=== PATIENT | female | born 1990 | race Caucasian/White ===

== ENCOUNTER → 2017-05-06 | Emergency (ER) | payer OTHER ==
[2017-05-06 01:02] VITALS: BP 128/71; PULSE 94; TEMP 98.5; BMI 35.7
[2017-05-06 03:50] LABS: URINE APPEARANCE CLEAR; URINE BILIRUBIN NEGATIVE (NEGATIVE); URINE BLOOD 3+ (NEGATIVE); URINE COLOR LT. YELLOW; URINE GLUCOSE (UA) NEGATIVE (NEGATIVE); URINE KETONE TRACE (NEGATIVE); URINE NITRITE NEGATIVE (NEGATIVE); URINE PROTEIN TRACE (NEGATIVE)
--- NOTE | 2017-05-06 03:50 | PDOC ---
History of Present Illness - General History Source: Patient Exam Limitations: No Limitations - History of Present Illness Initial Comments: 05/06/17 03:51 The patient is a 26 year old female who is approx. 8 weeks (no past pregnancies) with no significant past medical history who presents to the ER s/ p hematuria approx. 3 hours ago. The patient reports she noticed a small amount of blood in her urine tonight and wanted to be evaluated. She reports her OB/ MACHINE FIXER is Dr. Peterson and her last visit was March. She denies recent dysuria, frequency, or urgency. She denies recent chest pain or shortness of breath. She denies recent recent nausea, vomit, diarrhea or constipation. 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 Peterson <Fredrick Dominguez - Last Filed: 05/06/17 03:51> <Laquita Rehman - Last Filed: 05/07/17 00:12> - General Chief Complaint: Vaginal Bleeding Stated Complaint: VAGINAL BLEEDING Time Seen by Provider: 05/06/17 02:28 Past History <Fredrick Dominguez - Last Filed: 05/06/17 03:51> - Past Medical History Other medical history: denies - Suicide/Smoking/Psychosocial Hx Smoking History: Never smoked <Laquita Rehman - Last Filed: 05/07/17 00:12> - Past Medical History Allergies/Adverse Reactions: Allergies Allergy/AdvReac Type Severity Reaction Status Date / Time No Known Allergies Allergy Verified 05/06/17 00:52 Review of Systems - Review of Systems Comments:: 05/06/17 03:51 GENERAL/CONSTITUTIONAL: No fever or chills. No weakness. HEAD, EYES, EARS, NOSE AND THROAT: No change in vision. No ear pain or discharge. No sore throat. CARDIOVASCULAR: No chest pain or shortness of breath. RESPIRATORY: No cough, wheezing, or hemoptysis. GASTROINTESTINAL: No nausea, vomiting, diarrhea or constipation. GENITOURINARY: No dysuria, frequency, or change in urination. MUSCULOSKELETAL: No joint or muscle swelling or pain. No neck or back pain. SKIN: No rash NEUROLOGIC: No headache, vertigo, loss of consciousness, or change in strength/ sensation. ENDOCRINE: No increased thirst. No abnormal weight change. HEMATOLOGIC/LYMPHATIC: No anemia, easy bleeding, or history of blood clots. ALLERGIC/IMMUNOLOGIC: No hives or skin allergy. <AlbertoFredrick - Last Filed: 05/06/17 03:51> *Physical Exam - Vital Signs Last Vital Signs Temp Pulse Resp BP Pulse Ox 98.5 F 94 H 18 128/71 100 05/06/17 00:49 05/06/17 00:49 05/06/17 00:49 05/06/17 00:49 05/06/17 00:49 - Physical Exam Comments: 05/06/17 03:51 ENERAL: Awake, alert, and fully oriented, in no acute distress HEAD: No signs of trauma EYES: PERRLA, EOMI, sclera anicteric, conjunctiva clear ENT: Auricles normal inspection, hearing grossly normal, nares patent, oropharynx clear without exudates. Moist mucosa NECK: Normal ROM, supple, no lymphadenopathy, JVD, or masses LUNGS: Breath sounds equal, clear to auscultation bilaterally. No wheezes, and no crackles HEART: Regular rate and rhythm, normal S1 and S2, no murmurs, rubs or gallops ABDOMEN: Soft, nontender, normoactive bowel sounds. No guarding, no rebound. No masses EXTREMITIES: Normal range of motion, no edema. No clubbing or cyanosis. No cords, erythema, or tenderness NEUROLOGICAL: Cranial nerves II through XII grossly intact. Normal speech, normal gait SKIN: Warm, Dry, normal turgor, no rashes or lesions noted. <DominguezAlexanderFredrick - Last Filed: 05/06/17 03:51> - Vital Signs Last Vital Signs Temp Pulse Resp BP Pulse Ox 98.5 F 94 H 18 128/71 100 05/06/17 00:49 05/06/17 00:49 05/06/17 00:49 05/06/17 00:49 05/06/17 00:49 <Laquita Rehman - Last Filed: 05/07/17 00:12> Medical Decision Making - Medical Decision Making 05/06/17 03:55 Pt comes with vaginal bleeding when she wipes after urination. She is 8 weeks and states that she norman d a sono 2 weeks ago that demonstrated an IUP with FHT. Pt is Opositive, SHe understands that she doesn;t require US at this time, as we know baby is IUP , and she can follow up with PMD. Pt will have UA sent to make sure that she has no UTI. SHe is unwilling to wait for UTI results and she also will not let us verify her O+ status that she reports, as we need to give Rhogam in case she is RH negative. Pt will follow with her PMD Nicholas. <Laquita Rehman - Last Filed: 05/07/17 00:12> *DC/Admit/Observation/Transfer - Attestations Scribe Attestion: 05/06/17 03:51 Documentation prepared by Fredrick Dominguez, acting as medical assembler for Laquita Rehman MD. <Fredrick Dominguez - Last Filed: 05/06/17 03:51> - Discharge Dispostion Admit: No <Laquita Rehman - Last Filed: 05/07/17 00:12> Diagnosis at time of Disposition: Vaginal bleeding, Threatened - Discharge Dispostion Disposition: ELOPED Condition at time of disposition: Stable
[2017-05-06 03:52] LABS: URINE LEUK ESTERASE TRACE (NEGATIVE)
[2017-05-06 04:00] LABS: URINE MUCUS RARE; URINE RBC 11 /hpf (0-3); URINE WBC 11 /hpf (3-5)
== END | disposition left against medical advice (07) ==
LOC: JER 00:46
DX: O20.0 Threatened abortion (principal); Z3A.08 8 weeks gestation of pregnancy
CPT/HCPCS: 81003; 81015; 99281-25

== ENCOUNTER 2017-08-28 17:39 | Inpatient (IN) | payer OTHER ==
[2017-08-28] MEDS ORDERED: LACTATED RINGERS SOLUTION 1,000 ML/1,000 ML INFUS.BAG IV ONE (18:25)
[2017-08-28] MEDS ORDERED: BETAMET ACET/BETAMET NA PH 30 MG/5 ML VIAL ONE (18:29)
[2017-08-28] MEDS ORDERED: BETAMET ACET/BETAMET NA PH 30 MG/5 ML VIAL IM ONE ×2 (18:30)
[2017-08-28 18:51] VITALS: BMI 37.7
[2017-08-28] MEDS ORDERED: MAGNESIUM 4GM/H20 - 4 GM/100 ML IVPB IVPB ONE ×2 (19:05→19:10)
[2017-08-28] MEDS ORDERED: AMPICILLIN SODIUM 2 GM VIAL ONE (19:28)
[2017-08-28] MEDS ORDERED: AMPICILLIN - 2 GM in SODIUM CHLORIDE 100 ML IVPB ONE (19:30)
[2017-08-28] MEDS ORDERED: ELECTROLYTE-148 SOLN 1,000 ML IV ONE (19:31)
[2017-08-28 19:35] LABS: BASO % 0.5 % (0-2.0); EOS % 0.6 % (0-4.5); HEMATOCRIT 33.9 % (32.4-45.2); HEMOGLOBIN 11.3 GM/dL (10.7-15.3); MCH 29.5 pg (25.7-33.7); MCHC 33.2 g/dl (32.0-36.0); MEAN CELL VOLUME 88.9 fl (80-96); MEAN PLT VOLUME 8.3 fl (7.5-11.1); NEUT % 75.9 % (42.8-82.8); PLATELET COUNT 240 K/MM3 (134-434); RBC 3.82 M/mm3 (3.60-5.2); RDW 14.1 % (11.6-15.6); WHITE BLOOD COUNT 13.6 K/mm3 (4.0-10.0)
[2017-08-28] MEDS ORDERED: MAGNESIUM SULFATE 20GM/500ML - 20 GM/500 ML INFUS.BAG ONE (19:35)
[2017-08-28] MEDS ORDERED: MAGNESIUM SULFATE 20GM/500ML - 20 GM/500 ML INFUS.BAG IVPB ONE (19:40)
[2017-08-28 19:52] LABS: INR 0.95 (0.82-1.09); PROTHROMBIN TIME (PATIENT) 10.7 SEC (9.98-11.88)
[2017-08-28 19:53] LABS: ANION GAP 11 (8-16); BLOOD UREA NITROGEN 8 mg/dL (7-18); CALCIUM 8.2 mg/dL (8.5-10.1); CHLORIDE 103 mmol/L (98-107); CO2 23 mmol/L (21-32); CREATININE 0.4 mg/dL (0.55-1.02); GLUCOSE,RANDOM 92 mg/dL (74-106); POTASSIUM 3.8 mmol/L (3.5-5.1); SODIUM 137 mmol/L (136-145)
[2017-08-28 19:55] LABS: ACTIVATED PTT 27.7 SECONDS (26.9-34.4)
[2017-08-28] MEDS ORDERED: BUTORPHANOL TARTRATE 1 MG/ML VIAL ONE ×2 (20:08)
[2017-08-28] MEDS ORDERED: PROMETHAZINE HCL 25 MG/1 ML VIAL ONE (20:09)
--- NOTE | 2017-08-28 20:09 | HP ---
Past Medical History - Primary Care Physician PCP:: Mumtaz Peterson - Admission Chief Complaint: 27 yo @ 24.5wks. She called the servise shaka at 5pm informing of some spotting and instructed to go to labor and delivery immidiately. She did not report contructions, LOF, + FM History of Present Illness: Nurse reported @ 6pm that patient is 6cm dilated I asked to give her Bethamethasone and start MgSo4 I came and saw patient at 7pm I found that patient was uncomfortable and preeti on the monitor I reexamined her VE:8/100% and buldging membranes at 7pm that is when Mgso4 was started History Source: Patient, Medical Record Limitations to Obtaining History: No Limitations - Past Medical History ...: 1 ...Para: 0 ...Term: 0 ...: 0 ...Spon : 0 ...Induced : 0 ...Multiple Gestation: 0 ...LMP: 03/08/17 ... 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 Home Medications - Allergies Allergies/Adverse Reactions: Allergies Allergy/AdvReac Type Severity Reaction Status Date / Time No Known Allergies Allergy Verified 05/06/17 00:52 - Home Medications Home Medications: Ambulatory Orders Vitamins 1 tab PO DAILY 08/28/17 Review of Systems - Review of Systems Constitutional: reports: No Symptoms Neck: reports: No Symptoms Cardiovascular: reports: No Symptoms Respiratory: reports: No Symptoms Gastrointestinal: reports: No Symptoms Breasts: reports: No Symptoms Reported Musculoskeletal: reports: No Symptoms Integumentary: reports: No Symptoms Neurological: reports: No Symptoms Endocrine: reports: No Symptoms Hematology/Lymphatic: reports: No Symptoms Psychiatric: reports: No Symptoms Pain Intensity: 7 (feels contructions and pressure) Physical Exam - Maternity Vital Signs: Vital Signs Temperature 97.3 F L 08/28/17 18:15 Pulse Rate 73 08/28/17 18:15 Respiratory Rate 20 08/28/17 18:15 Blood Pressure 121/64 08/28/17 18:15 O2 Sat by Pulse Oximetry (%) Constitutional: Yes: Well Nourished, Other (Obese) Eyes: Yes: WNL HENT: Yes: WNL Neck: Yes: WNL Cardiovascular: Yes: WNL Lungs: Clear to auscultation Breast(s): Yes: WNL - Abdominal Exam/OB Fundal Height: 24 Number of Fetuses: Single Presentation: Vertex Contractions: Yes Regularity: Regular Intensity: Mild/Mod Monitor Mode: External Heart Rate (range): 140's Heart Rate Location: Midline Category: I Accelerations: Uniform Decelerations: None - Vaginal Exam/OB Vaginal Bleediing: Yes, Light Speculum Exam: No Dilatation (cm): 8 Effacement (%): 100 Amniotic Membrane Status: Bulging Presentation: Vertex/Position Station: 0 - Physical Exam Musculoskeletal: Yes: WNL Extremities: Yes: WNL Edema: No Integumentary: Yes: WNL Deep Tendon Reflex Grade: Normal +2 ...Motor Strength: WNL Psychiatric: Yes: Alert, Oriented - Labs Lab Results: CBC, BMP 08/28/17 19:15 08/28/17 19:15 Assessment/Plan 27yo @ 24.5wks in labor Bethamethasone given for lung maturity and to decrease bowel and brain complications of prematurity MgSO4 started to increase latency and neuroprophylaxis Ampicillin given for infection prophylaxis Patient is placed in [place] position, martinez to gravity given Stadol/Phenergan, she is resting Asked a suggestion about additional tocolysis, he is not recommending it Transfer to [facility] initiated Patient is accepted at 21:45 Awaiting the transport team
[2017-08-28] MEDS ORDERED: BUTORPHANOL TARTRATE 1 MG/ML VIAL IVPUSH ONE ×2 (20:38)
[2017-08-28] MEDS ORDERED: PROMETHAZINE HCL 25 MG/1 ML VIAL IVPUSH ONE (20:38)
[2017-08-28 21:58] VITALS: BP 115/65; PULSE 92; TEMP 98.1
[2017-08-28 23:14] LABS: COCAINE, UR NEGATIVE ng/ml (CUTOFF=300); METHADONE, UR NEGATIVE ng/ml (CUTOFF=300); OPIATES, URI NEGATIVE ng/ml (CUTOFF=300); PHENCYCLIDINE,URINE NEGATIVE ng/ml (CUTOFF=25); URINE AMPHETAMINES NEGATIVE ng/ml (CUTOFF=500); URINE BARBITURATES NEGATIVE ng/ml (CUTOFF=200); URINE BENZODIAZEPINES NEGATIVE ng/ml (CUTOFF=200)
[2017-08-29 07:19] LABS: RPR NONREACTIVE (NONREACTIVE)
== END 2017-08-28 22:30 | disposition short-term general hospital (02) | DRG 563 ==
LOC: JDEL 17:39 → JLDR 18:15
PROVIDERS: ADMIT Obstetrics & Gynecology; ATTEND Obstetrics & Gynecology
DX: O60.02 Preterm labor without delivery, second trimester (principal); Z3A.24 24 weeks gestation of pregnancy
CPT/HCPCS: 36415; 80048; 80307; 85025; 85610; 85730; 86593; 86850; 86900; 86901; 87070; 87081; 87086; 87205; 87389; 87491; 87591; 96372

== ENCOUNTER 2018-02-15 01:15 | Inpatient (IN) | payer OTHER ==
[2018-02-15 01:58] VITALS: BMI 37.5
--- NOTE | 2018-02-15 02:02 | PDOC ---
History of Present Illness - General Chief Complaint: Pain, Acute Stated Complaint: BACK PAIN/ABDOMINAL PAIN Time Seen by Provider: 02/15/18 02:00 - History of Present Illness Initial Comments: 02/15/18 02:16 The patient is a 27 year old female with no significant PMH who presents for evaluation of abdominal pain, nausea, vomiting. The patient reports onset of burning epigastric abdominal pain 1 day ago with associated nausea and several episodes of non-bilious, non-bloody vomiting. She noted some radiation of the pain into her back prompting her presentation to the ED for further evaluation. She otherwise denies fevers, chills, SOB, chest pain, or changes with urination or bowel movements. Past History - Past Medical History Allergies/Adverse Reactions: Allergies Allergy/AdvReac Type Severity Reaction Status Date / Time No Known Allergies Allergy Verified 02/15/18 01:58 Home Medications: Ambulatory Orders NK [No Known Home Medication] 02/15/18 Asthma: No Cancer: No Cardiac Disorders: No Diabetes: No HTN: No Seizures: No Thyroid Disease: No - Suicide/Smoking/Psychosocial Hx Smoking History: Never smoked Have you smoked in the past 12 months: No Information on smoking cessation initiated: No Hx Alcohol Use: No Drug/Substance Use Hx: No Hx Substance Use Treatment: No Review of Systems - Review of Systems Comments:: 02/15/18 02:23 Constitutional: No fevers, chills, fatigue, malaise HEENT: No Rhinorrhea, nasal congestion, visual changes Cardiovascular: No chest pain, syncope, palpitations, lightheadedness Respiratory: No Cough, SOB, Hemoptysis, Gastrointestinal: Abdominal pain, nausea, vomiting. No Constipation, Diarrhea, Melena Genitourinary: No Dysuria, Frequency, Urgency, Hesitancy, Hematuria, Flank pain Musculoskeletal: No Myalgia, arthralgia Skin: No rashes, itching, bruising, pallor Neurologic: No Headache, Dizziness, Numbness, Weakness, or Tingling Psychiatric: No Hallucinations. No SI or HI *Physical Exam - Vital Signs Last Vital Signs Temp Pulse Resp BP Pulse Ox 98.2 F 97 H 16 124/75 99 02/15/18 01:55 02/15/18 01:55 02/15/18 01:55 02/15/18 01:55 02/15/18 01:55 - Physical Exam Comments: 02/15/18 02:23 General Appearance: Nourished. No Apparent Distress HEENT: No Pharyngeal Erythema, Tonsillar Exudate, Tonsillar Erythema Neck: No Cervical Lymphadenopathy Respiratory/Chest: Lungs Clear, Normal Breath Sounds. No Crackles, Rales, Rhonchi, Wheezing Cardiovascular: Regular Rhythm, Regular Rate. No Murmur, Gallops, Rubs Gastrointestinal/Abdominal: Normal Bowel Sounds, Soft. No Guarding, Rebound, Tenderness Musculoskeletal: No CVA Tenderness Extremity: Normal Capillary Refill Integumentary: Normal Color, Dry, Warm Neurologic: Fully Oriented, Alert, Normal Mood/Affect, Normal Response, ED Treatment Course - LABORATORY CBC & Chemistry Diagram: 02/15/18 07:38 02/15/18 15:30 Medical Decision Making - Medical Decision Making 02/15/18 02:23 The patient is a 27 year old female with no significant PMH who presents for evaluation of abdominal pain, nausea, vomiting. Differential includes but is not limited to: Gastritis, Infectious, UTI, Metabolic derangement. Given the patient's history and physical exam, we will obtain a cbc, cmp, lipase, ua, urine preg to evaluate further for possible etiologies. We will treat with iv fluids, pepcid, zofran, maalox and continue to monitor and reassess while here in the ED. 02/15/18 04:18 CBC is unremarkable. cmp demonstrates significant elevations in the patient's t.bili and liver enzymes concerning for possible gallbladder pathology. The patient states that she is comfortable on exam, but will require official US evaluate. We will continue to monitor and reassess while the patient is in the ED. She is to have US in the am. 02/15/18 07:00 Patient signed out to Dr. Feliz pending US evaluation. *DC/Admit/Observation/Transfer Diagnosis at time of Disposition: Cholecystitis, Biliary obstruction, Elevated transaminase level, Hyperbilirubinemia - Discharge Dispostion Condition at time of disposition: Guarded - Referrals - Patient Instructions - Post Discharge Activity
[2018-02-15] MEDS ORDERED: ONDANSETRON 4 MG/2 ML VIAL IVPUSH ONE (02:10)
[2018-02-15] MEDS ORDERED: FAMOTIDINE 20 MG/50 ML IVPB 20 MG/50 ML MG IVPB ONE ×2 (02:10→02:49)
[2018-02-15] MEDS ORDERED: SODIUM CHLORIDE 1,000 ML IV STA (02:10)
--- NOTE | 2018-02-15 02:13 | PDOC ---
Attending Attestation - HPI HPI: 02/15/18 02:23 The patient is a 27 year old female, with no significant past medical history, who presents to the emergency department with, 1 day of epigastric burning and associated pain. She explains the pain to radiate to her back and be accompanied by nausea and multiple episodes of nonbloody, nonbilious emesis. She denies recent fevers, chills, headache or dizziness. She denies recent diarrhea or constipation. She denies recent dysuria, frequency, urgency or hematuria. She denies recent chest pain or shortness of breath. Allergies: NKA Past surgical history: None reported. Social history: Nonsmoker. Denies EtOH use and recreational drug use. <Luis Ramsey - Last Filed: 02/15/18 02:23> - Resident Resident Name: Teofilo Wetzel - ED Attending Attestation I have performed the following: I have examined & evaluated the patient, The case was reviewed & discussed with the resident, I agree w/resident's findings & plan, Exceptions are as noted - Physicial Exam PE: 02/15/18 04:02 *Physical Exam General Appearance: Yes: Appropriately Dressed. No: Apparent Distress, Intoxicated HEENT: positive: EOMI, ELI, Normal ENT Inspection, Normal Voice, TMs Normal, Pharynx Normal. negative: Pale Conjunctivae, Photophobia, Scleral Icterus (R), Scleral Icterus (L) Neck: positive: Trachea midline, Normal Thyroid, Supple. negative: Tender, Rigid, Carotid bruit, Stridor, Lymphadenopathy (R), Lymphadenopathy (L), Thyromegaly Respiratory/Chest: positive: Lungs Clear, Normal Breath Sounds. negative: Chest Tender, Respiratory Distress, Accessory Muscle Use, Labored Respiration, RES, Crackles, Rales, Rhonchi, Stridor, Wheezing, Dullness Cardiovascular: positive: Regular Rhythm, Regular Rate, S1, S2. negative: Edema , JVD, Murmur, Bradycardia, Tachycardia Vascular Pulses: Dorsalis-Pedis (R): 2+, Doralis-Pedis (L): 2+ Gastrointestinal/Abdominal: positive: Normal Bowel Sounds, Flat, Soft. negative : Tender, Organomegaly, Pulsatile Mass, Increased Bowel Sounds, Decreased BS, Distended, Guarding, Rebound, Hernia, Hepatomegaly, Spleenomegaly Lymphatic: negative: Adenopathy, Tenderness Musculoskeletal: positive: Normal Inspection. negative: CVA Tenderness, Decreased Range of Motion Extremity: positive: Normal Capillary Refill, Normal Inspection, Normal Range of Motion, Pelvis Stable. negative: Tender, Pedal Edema, Swelling, Erythema Integumentary: positive: Normal Color, Dry, Warm. negative: Cyanotic, Erythema , Jaundice, Rash Neurologic: positive: chinese medicine practitioner II-XII NML intact, Fully Oriented, Alert, Normal Mood/ Affect, Motor Strength 5/5. negative: EOM Palsy, Facial Droop, Sensory Deficit - Medical Decision Making 02/15/18 19:28 Pt admitted to [facility] <Eris Franz - Last Filed: 02/15/18 19:28> Attestations - Attestations 02/15/18 02:23 Documentation prepared by Luis Ramsey, acting as medical investigator for Eris Franz DO. <Luis Ramsey - Last Filed: 02/15/18 02:23>
[2018-02-15] MEDS ORDERED: MAG HYDROX/AL HYDROX/SIMETH 30 ML UNIT-DOSE CUP PO ONE (02:14)
[2018-02-15] MEDS ORDERED: MAG HYDROX/AL HYDROX/SIMETH 30 ML UNIT-DOSE CUP ONE (02:48)
[2018-02-15] MEDS ORDERED: ONDANSETRON 4 MG/2 ML VIAL ONE (02:49)
[2018-02-15 03:23] LABS: BASO % 0.4 % (0-2.0); EOS % 0.9 % (0-4.5); HEMOGLOBIN 13.8 GM/dL (10.7-15.3); LYMPH % 14.7 % (8-40); MCH 27.9 pg (25.7-33.7); MCHC 33.6 g/dl (32.0-36.0); MEAN CELL VOLUME 83.1 fl (80-96); MEAN PLT VOLUME 9.4 fl (7.5-11.1); PLATELET COUNT 263 K/MM3 (134-434); RBC 4.93 M/mm3 (3.60-5.2); WHITE BLOOD COUNT 7.9 K/mm3 (4.0-10.0)
[2018-02-15 03:24] LABS: HCG,QUALITATIVE URINE NEGATIVE; URINE APPEARANCE CLEAR; URINE BILIRUBIN NEGATIVE (<2.0 mg/dL); URINE COLOR YELLOW; URINE GLUCOSE (UA) NEGATIVE (NEGATIVE); URINE KETONE NEGATIVE (NEGATIVE); URINE LEUK ESTERASE NEGATIVE (NEGATIVE); URINE NITRITE NEGATIVE (NEGATIVE); URINE PROTEIN NEGATIVE (NEGATIVE)
[2018-02-15 03:40] LABS: EPI CELLS RARE /HPF (FEW)
[2018-02-15 03:53] LABS: ALBUMIN 3.4 g/dl (3.4-5.0); ALK PHOS 175 U/L (45-117); ANION GAP 8 (8-16); BILIRUBIN,TOTAL 4.3 mg/dL (0.2-1.0); BLOOD UREA NITROGEN 7 mg/dL (7-18); CALCIUM 8.9 mg/dL (8.5-10.1); CHLORIDE 105 mmol/L (98-107); CO2 28 mmol/L (21-32); CREATININE 0.7 mg/dL (0.55-1.02); GLUCOSE,RANDOM 132 mg/dL (74-106); LIPASE 95 U/L (73-393); POTASSIUM 4.4 mmol/L (3.5-5.1); SODIUM 141 mmol/L (136-145); TOT PROT 7.4 g/dl (6.4-8.2)
[2018-02-15 03:55] LABS: SGOT/AST 888 U/L (15-37); SGPT/ALT 997 U/L (12-78)
--- NOTE | 2018-02-15 07:07 | PDOC ---
*Physical Exam - Vital Signs Last Vital Signs Temp Pulse Resp BP Pulse Ox 98.6 F 88 18 138/70 99 02/15/18 04:35 02/15/18 04:35 02/15/18 04:35 02/15/18 04:35 02/15/18 04:35 02/15/18 07:05 Care endorsed to me by Dr. Wetzel at the end of his shift. Patient is a 27 YOF with unremarkable PMH who p/w epigastric burning radiating to her back, had very elevated LFTs and T. bili >4 on labs, is pending abdominal US. Will likely need admission, possible GI consult +/- ERCP. ED Treatment Course - LABORATORY CBC & Chemistry Diagram: 02/15/18 07:38 02/15/18 07:38 - ADDITIONAL ORDERS Additional order review: Laboratory Results 02/15/18 02/15/18 03:00 03:00 Sodium 141 Potassium 4.4 Chloride 105 Carbon Dioxide 28 Anion Gap 8 BUN 7 Creatinine 0.7 Creat Clearance w eGFR > 60 Random Glucose 132 H Calcium 8.9 Total Bilirubin 4.3 H AST 888 H ALT 997 H Alkaline Phosphatase 175 H Total Protein 7.4 Albumin 3.4 Lipase 95 Urine Color Yellow Urine Appearance Clear Urine pH 6.0 Ur Specific [place] 1.005 Urine Protein Negative Urine Glucose (UA) Negative Urine Ketones Negative Urine Blood 1+ H Urine Nitrite Negative Urine Bilirubin Negative Urine Urobilinogen 2.0 H Ur Leukocyte Esterase Negative Urine WBC (Auto) 2 Urine RBC (Auto) 3 Ur Epithelial Cells Rare Urine HCG, Qual Negative 02/15/18 03:00 RBC 4.93 MCV 83.1 MCHC 33.6 RDW 14.0 MPV 9.4 D Neutrophils % 79.0 Lymphocytes % 14.7 Monocytes % 5.0 Eosinophils % 0.9 Basophils % 0.4 - Medications Given in the ED: ED Medications Discontinued Medications Generic Name Dose Route Start Last Admin Trade Name Freq PRN Reason Stop Dose Admin Al Hydroxide/Mg Hydroxide 30 ml 02/15/18 02:14 02/15/18 03:10 Mylanta Oral Suspension - PO 02/15/18 02:15 30 ml ONCE ONE Administration Famotidine/Sodium Chloride 20 mg in 50 mls @ 100 mls/hr 02/15/18 02:10 03:10 Pepcid 20 Mg Premixed Ivpb - IVPB 02/15/18 02:39 100 mls/hr ONCE ONE Administration Sodium Chloride 1,000 mls @ 1,000 mls/hr 02/15/18 02:10 02/15/18 03:10 Normal Saline - IV 02/15/18 03:09 1,000 mls/hr ASDIR STA Administration Ondansetron HCl 4 mg 02/15/18 02:10 02/15/18 03:10 Zofran Injection IVPUSH 02/15/18 02:11 4 mg ONCE ONE Administration Medical Decision Making - Medical Decision Making 02/15/18 08:23 Adult female Pt p/w abdominal pain. Initial Vital Signs Temp Pulse Resp BP Pulse Ox 98.2 F 97 H 16 124/75 99 02/15/18 01:55 02/15/18 01:55 02/15/18 01:55 02/15/18 01:55 02/15/18 01:55 DDX IBNLT: cholecystitis (calculous vs. acalculous), choledocholithiasis, cholangitis, pancreatitis, appendicitis, gastritis, PUD, colitis, diverticulitis wwo abscess or perforation, AAA/AD, ACS, renal colic, obstructive uropathy, UTI/pyelonephritis, hernia, SBO, mesenteric/bowel ischemia , bowel perforation, malignancy, ovarian torsion, ovarian cyst, ectopic , PID, TOA, cervicitis, endometritis, salpingitis, oophoritis, Jason- Stan-Jeison syndrome, primary dysmenorrhea, endometriosis, fibroids, constipation, gas, musculoskeletal, etc. W/U ordered: CBCD CMP Mg Phos Lipase Lactate Troponin CK CKMB Coags T&S UA UCx GC/Chlam/trich NAAT (cervical swab), GC culture, EKG CXR RUQ US TVUS TX ordered: IVF Ofirmev Reglan Zofran Pepcid Maalox Likely cholecystitis as Pt is overweight child-bearing age female, but -[place] , started after eating pepperoni pizza. Unlikely cholangitis as Pt has no fever, clinical jaundice, RUQ pain; also no hypotension or AMS. Laboratory Tests 02/15/18 02/15/18 02/15/18 03:00 03:00 03:00 WBC 7.9 RBC 4.93 Hgb 13.8 Hct 41.0 D MCV 83.1 MCH 27.9 MCHC 33.6 RDW 14.0 Plt Count 263 MPV 9.4 D Absolute Neuts (auto) 6.2 Neutrophils % 79.0 Lymphocytes % 14.7 Monocytes % 5.0 Eosinophils % 0.9 Basophils % 0.4 Nucleated RBC % 0 Sodium 141 Potassium 4.4 Chloride 105 Carbon Dioxide 28 Anion Gap 8 BUN 7 Creatinine 0.7 Creat Clearance w eGFR > 60 Random Glucose 132 H Calcium 8.9 Total Bilirubin 4.3 H AST 888 H ALT 997 H Alkaline Phosphatase 175 H Total Protein 7.4 Albumin 3.4 Lipase 95 Urine Color Yellow Urine Appearance Clear Urine pH 6.0 Ur Specific [place] 1.005 Urine Protein Negative Urine Glucose (UA) Negative Urine Ketones Negative Urine Blood 1+ H Urine Nitrite Negative Urine Bilirubin Negative Urine Urobilinogen 2.0 H Ur Leukocyte Esterase Negative Urine WBC (Auto) 2 Urine RBC (Auto) 3 Ur Epithelial Cells Rare Urine HCG, Qual Negative 02/15/18 02/15/18 07:38 07:38 WBC 5.7 RBC 4.51 Hgb 12.7 Hct 37.8 MCV 83.8 MCH 28.1 MCHC 33.5 RDW 13.7 Plt Count 224 MPV 9.1 Absolute Neuts (auto) 3.7 Neutrophils % 64.5 Lymphocytes % 28.0 D Monocytes % 5.8 Eosinophils % 1.4 Basophils % 0.3 Nucleated RBC % 0 Sodium 141 Potassium 4.5 Chloride 109 H Carbon Dioxide 26 Anion Gap 6 L BUN 5 L Creatinine 0.6 Creat Clearance w eGFR > 60 Random Glucose 117 H Calcium 8.3 L Total Bilirubin 4.2 H AST 782 H ALT 944 H Alkaline Phosphatase 167 H Total Protein 6.4 Albumin 3.0 L Lipase Urine Color Urine Appearance Urine pH Ur Specific [place] Urine Protein Urine Glucose (UA) Urine Ketones Urine Blood Urine Nitrite Urine Bilirubin Urine Urobilinogen Ur Leukocyte Esterase Urine WBC (Auto) Urine RBC (Auto) Ur Epithelial Cells Urine HCG, Qual US: CBD 0.51, GB wall thickness borderline increased, cholelithiasis Page sent to [facility] Dr. Rodriguez. Reassessment: Patient appears comfortable, resting, no longer any pain. ADMIT The Pts symptoms persist despite ED treatments. Patient's LFT elevation is concerning and persistent. GB ultrasound shows CBD 0.51, cholelithiasis. The Pt is unsafe for discharge at this time. They require further hospital observation, workup, and treatment. Consults placed to Dr. Rodriguez and Jennifer. Ordered Zosyn, remaining pre-op w/u. Microblog sent to [facility] for admission. [facility], in agreement Pt to be admitted to IP Med/Surg. Decision to Admit order placed to covering attending Dr. Mejia. *DC/Admit/Observation/Transfer Diagnosis at time of Disposition: Cholecystitis, Biliary obstruction, Elevated transaminase level, Hyperbilirubinemia - Discharge Dispostion Condition at time of disposition: Guarded Decision to Admit order: Yes - Referrals Referrals: Dominique Arceo [Primary Care Provider] - - Patient Instructions - Post Discharge Activity
[2018-02-15 07:57] LABS: BASO % 0.3 % (0-2.0); EOS % 1.4 % (0-4.5); HEMATOCRIT 37.8 % (32.4-45.2); HEMOGLOBIN 12.7 GM/dL (10.7-15.3); MCH 28.1 pg (25.7-33.7); MCHC 33.5 g/dl (32.0-36.0); MEAN CELL VOLUME 83.8 fl (80-96); MEAN PLT VOLUME 9.1 fl (7.5-11.1); MONO % 5.8 % (3.8-10.2); NEUT % 64.5 % (42.8-82.8); PLATELET COUNT 224 K/MM3 (134-434); RBC 4.51 M/mm3 (3.60-5.2); RDW 13.7 % (11.6-15.6); WHITE BLOOD COUNT 5.7 K/mm3 (4.0-10.0)
[2018-02-15 08:28] LABS: ALK PHOS 167 U/L (45-117); ANION GAP 6 (8-16); BILIRUBIN,TOTAL 4.2 mg/dL (0.2-1.0); BLOOD UREA NITROGEN 5 mg/dL (7-18); CALCIUM 8.3 mg/dL (8.5-10.1); CHLORIDE 109 mmol/L (98-107); CO2 26 mmol/L (21-32); CREATININE 0.6 mg/dL (0.55-1.02); GLUCOSE,RANDOM 117 mg/dL (74-106); POTASSIUM 4.5 mmol/L (3.5-5.1); SGOT/AST 782 U/L (15-37); SGPT/ALT 944 U/L (12-78); SODIUM 141 mmol/L (136-145); TOT PROT 6.4 g/dl (6.4-8.2)
[2018-02-15] MEDS ORDERED: SODIUM CHLORIDE 0.9% 500 ML INFUS.BAG IV ONE (09:51)
--- NOTE | 2018-02-15 12:17 | CONSULT ---
Consult Consult Specialty:: General Surgery Referred by:: JESSICA Smith Reason for Consultation:: abdominal pain - History of Present Illness Chief Complaint: Abdominal Pain History of Present Illness: 27yo female PMH obesity presents to the ED with complaints of abdominal pain, nausea, vomiting with an acute onset of epigastric abdominal pain that began 1 day ago. The pain associated with nausea, and several episodes of non-bilious, non-bloody vomiting and ongoing nausea. Symptoms began yesterday after eating pepperonni pizza before going to bed. Her RUQ abdominal pain persisted and radiated into her back prompting her visit today. She describes this pain as sharp and severe. Had recently given in August 2017 to a premature 25 week old baby boy who is currently at [facility]. we were asked to assess. - History Source History Provided By: Patient, Medical Record Limitations to Obtaining History: No Limitations - Alcohol/Substance Use Hx Alcohol Use: No - Smoking History Smoking history: Never smoked Have you smoked in the past 12 months: No - Social History History of Recent Travel: Yes ([place] in July) Home Medications - Allergies Allergies/Adverse Reactions: Allergies Allergy/AdvReac Type Severity Reaction Status Date / Time No Known Allergies Allergy Verified 02/15/18 01:58 - Home Medications Home Medications: Ambulatory Orders NK [No Known Home Medication] 02/15/18 Review of Systems - Review of Systems Constitutional: denies: Chills, Fever Eyes: denies: Blurred Vision, Recent Change in Vision HENT: denies: Difficult Swallowing, Throat Pain Cardiovascular: denies: Chest Pain, Palpitations Respiratory: denies: Cough, SOB Gastrointestinal: reports: Abdominal Pain, Indigestion. denies: Constipation, Diarrhea Genitourinary: denies: Discharge, Dysuria Breasts: reports: No Symptoms Reported. denies: Pain Musculoskeletal: denies: Muscle Pain, Muscle Weakness Integumentary: denies: Erythema, Lesions Neurological: denies: Seizure, Syncope Endocrine: denies: Unexplained Weight Gain, Unexplained Weight Loss Hematology/Lymphatic: denies: Easily Bruised, Excessive Bleeding Psychiatric: denies: Anxiety, Depression Physical Exam Vital Signs: Vital Signs Temperature 98.6 F 02/15/18 04:35 Pulse Rate 88 02/15/18 04:35 Respiratory Rate 18 02/15/18 04:35 Blood Pressure 138/70 02/15/18 04:35 O2 Sat by Pulse Oximetry (%) 99 02/15/18 04:35 Constitutional: Yes: No Distress, Calm, Obese Eyes: Yes: Conjunctiva Clear, EOM Intact HENT: Yes: Atraumatic, Normocephalic Neck: Yes: Supple, Trachea Midline Cardiovascular: Yes: Regular Rate and Rhythm, S1, S2 Respiratory: Yes: Regular, CTA Bilaterally Gastrointestinal: Yes: Normal Bowel Sounds, Soft, Abdomen, Obese, Tenderness ...Rectal Exam: Yes: Deferred Renal/: No: CVA Tenderness - Left, CVA Tenderness - Right Musculoskeletal: No: Muscle Pain, Muscle Weakness Extremities: No: Cold, Cool, Cyanosis Edema: No Peripheral Pulses WNL: Yes Integumentary: No: Jaundice, Rash Wound/Incision: Yes: Other Neurological: Yes: Alert, Oriented Psychiatric: Yes: Alert, Oriented Labs: CBC, BMP 02/15/18 07:38 02/15/18 07:38 Imaging - Results Ultrasound: Report Reviewed (acute leighton cystitis), Image Reviewed MRI: Report Reviewed, Image Reviewed (no choledocholithiasis) Problem List - Problems (1) Cholecystitis Assessment/Plan: 27 yo obese female with Choledocholithiais NPO and IVF hydraition empiric IV antibiotics ID consult GI consult for ERCP will plan of cholecystetcomy during this admission will follow Code(s): K81.9 - CHOLECYSTITIS, UNSPECIFIED (2) Choledocholithiasis Code(s): K80.50 - CALCULUS OF BILE DUCT W/O CHOLANGITIS OR CHOLECYST W/O OBST (3) Obesity (BMI 30-39.9) Code(s): E66.9 - OBESITY, UNSPECIFIED (4) Elevated transaminase level Code(s): R74.0 - NONSPEC ELEV OF LEVELS OF TRANSAMNS & LACTIC ACID DEHYDRGNSE (5) Hyperbilirubinemia Code(s): E80.6 - OTHER DISORDERS OF BILIRUBIN METABOLISM
[2018-02-15] MEDS ORDERED: PIPERACILLIN/TAZOB 4.5 GM 4.5 GM in DEXTROSE 5%-WATER 100 ML IVPB ONE (12:28)
--- NOTE | 2018-02-15 12:56 | CON.GI ---
Consult Consult Specialty:: GI Reason for Consultation:: Transaminitis, Epigastric pain. - History of Present Illness History of Present Illness: A healthy, obese 27F with one day of severe, on/off, epigastric, radiating to the back, aggravated by food burning sensation and nausea. Subjective chills, no jaundice, diarrhea, melena, hematocheziaq, hematemesis, dysphagia, odynophagia, or GERD-like symptoms. No prior episodes of the same. No personal history of GI issues, GB, pancrease, or the liver problems. No weight loss. Denies excessive ETOH, NSAIDs. Mother c/p cholecystectomy for cholelithiasis. A the time of this encounter the aptient reports no pain, nausea. Last MSO4 use was at 12 am. The abdominal exam, including Maki's, negative. Has cholestasis with significant transaminitis on labs and cholelithiasis on US of the liver. Lipase, Hgb and WBC, Tmax, BP are normal. - History Source History Provided By: Patient Limitations to Obtaining History: No Limitations - Alcohol/Substance Use Hx Alcohol Use: No - Smoking History Smoking history: Never smoked Have you smoked in the past 12 months: No - Social History History of Recent Travel: Yes ([place] in July) Home Medications - Allergies Allergies/Adverse Reactions: Allergies Allergy/AdvReac Type Severity Reaction Status Date / Time No Known Allergies Allergy Verified 02/15/18 01:58 - Home Medications Home Medications: Ambulatory Orders Vitamins 1 tab PO DAILY 08/28/17 Family Disease History - Family Disease History Family Disease History: Other: Mother (gallstones, cholecystectomy) Review of Systems Findings/Remarks: as per HPI,. HEP. ED Physical Exam-GI Vital Signs: Vital Signs Temperature 98.0 F 02/15/18 12:26 Pulse Rate 72 02/15/18 12:26 Respiratory Rate 16 02/15/18 12:26 Blood Pressure 116/79 02/15/18 12:26 O2 Sat by Pulse Oximetry (%) 99 02/15/18 12:26 Constitutional: Yes: Well Nourished, No Distress, Calm Eyes: Yes: Conjunctiva Clear HENT: Yes: Atraumatic Neck: Yes: Supple Cardiovascular: Yes: Regular Rate and Rhythm Respiratory: Yes: Regular Gastrointestinal Inspection: No: Ascites, Distention ...Auscultate: Yes: Normoactive Bowel Sounds ...Palpate: Yes: Soft. No: Firm/Rigid, Guarding, Mass, Tenderness, Epigastium, Tenderness, Rebound Neurological: Yes: Alert, Oriented Labs: CBC, BMP 02/15/18 07:38 02/15/18 07:38 Laboratory Last Values WBC 5.7 K/mm3 (4.0-10.0) 02/15/18 07:38 RBC 4.51 M/mm3 (3.60-5.2) 02/15/18 07:38 Hgb 12.7 GM/dL (10.7-15.3) 02/15/18 07:38 Hct 37.8 % (32.4-45.2) 02/15/18 07:38 MCV 83.8 fl (80-96) 02/15/18 07:38 MCH 28.1 pg (25.7-33.7) 02/15/18 07:38 MCHC 33.5 g/dl (32.0-36.0) 02/15/18 07:38 RDW 13.7 % (11.6-15.6) 02/15/18 07:38 Plt Count 224 K/MM3 (134-434) 02/15/18 07:38 MPV 9.1 fl (7.5-11.1) 02/15/18 07:38 Absolute Neuts (auto) 3.7 # 02/15/18 07:38 Neutrophils % 64.5 % (42.8-82.8) 02/15/18 07:38 Lymphocytes % 28.0 % (8-40) D 02/15/18 07:38 Monocytes % 5.8 % (3.8-10.2) 02/15/18 07:38 Eosinophils % 1.4 % (0-4.5) 02/15/18 07:38 Basophils % 0.3 % (0-2.0) 02/15/18 07:38 Nucleated RBC % 0 % (0-0) 02/15/18 07:38 Sodium 141 mmol/L (136-145) 02/15/18 07:38 Potassium 4.5 mmol/L (3.5-5.1) 02/15/18 07:38 Chloride 109 mmol/L (98-107) H 02/15/18 07:38 Carbon Dioxide 26 mmol/L (21-32) 02/15/18 07:38 Anion Gap 6 (8-16) L 02/15/18 07:38 BUN 5 mg/dL (7-18) L 02/15/18 07:38 Creatinine 0.6 mg/dL (0.55-1.02) 02/15/18 07:38 Creat Clearance w eGFR > 60 (>60) 02/15/18 07:38 Random Glucose 117 mg/dL (74-106) H 02/15/18 07:38 Calcium 8.3 mg/dL (8.5-10.1) L 02/15/18 07:38 Total Bilirubin 4.2 mg/dL (0.2-1.0) H 02/15/18 07:38 AST 782 U/L (15-37) H 02/15/18 07:38 ALT 944 U/L (12-78) H 02/15/18 07:38 Alkaline Phosphatase 167 U/L (45-117) H 02/15/18 07:38 Total Protein 6.4 g/dl (6.4-8.2) 02/15/18 07:38 Albumin 3.0 g/dl (3.4-5.0) L 02/15/18 07:38 Lipase 95 U/L (73-393) 02/15/18 03:00 Urine Color Yellow 02/15/18 03:00 Urine Appearance Clear 02/15/18 03:00 Urine pH 6.0 (5.0-8.0) 02/15/18 03:00 Ur Specific [place] 1.005 (1.001-1.035) 02/15/18 03:00 Urine Protein Negative (NEGATIVE) 02/15/18 03:00 Urine Glucose (UA) Negative (NEGATIVE) 02/15/18 03:00 Urine Ketones Negative (NEGATIVE) 02/15/18 03:00 Urine Blood 1+ (NEGATIVE) H 02/15/18 03:00 Urine Nitrite Negative (NEGATIVE) 02/15/18 03:00 Urine Bilirubin Negative (<2.0 mg/dL) 02/15/18 03:00 Urine Urobilinogen 2.0 mg/dL (0.2-1.0) H 02/15/18 03:00 Ur Leukocyte Esterase Negative (NEGATIVE) 02/15/18 03:00 Urine WBC (Auto) 2 /hpf (3-5) 02/15/18 03:00 Urine RBC (Auto) 3 /hpf (0-3) 02/15/18 03:00 Ur Epithelial Cells Rare /HPF (FEW) 02/15/18 03:00 Urine HCG, Qual Negative 02/15/18 03:00 Imaging - Results Ultrasound: Report Reviewed MRI: Pending Problem List - Problems (1) Choledocholithiasis Code(s): K80.50 - CALCULUS OF BILE DUCT W/O CHOLANGITIS OR CHOLECYST W/O OBST (2) Cholecystitis Code(s): K81.9 - CHOLECYSTITIS, UNSPECIFIED (3) Cholelithiasis Code(s): K80.20 - CALCULUS OF GALLBLADDER W/O CHOLECYSTITIS W/O OBSTRUCTION (4) Biliary obstruction Code(s): K83.1 - OBSTRUCTION OF BILE DUCT (5) Elevated transaminase level Code(s): R74.0 - NONSPEC ELEV OF LEVELS OF TRANSAMNS & LACTIC ACID DEHYDRGNSE (6) Hyperbilirubinemia Code(s): E80.6 - OTHER DISORDERS OF BILIRUBIN METABOLISM Assessment/Plan A 27F with cholestasis, transaminitis and cholelithiasis. ?CBD obstruction, ? symptomatic cholelithiasis, early cholecystitis, ?passed stone. NPO, IVF, ABx with biliary converage, MRCP, close monitoring for worsening symptoims, jaundice, sepsis. Sx consult. Repeat liver chem, bili, ALP at 6 pm. Discussed with the patient
--- NOTE | 2018-02-15 12:57 | HP ---
CHIEF COMPLAINT: abdominal pain, nausea PCP: HISTORY OF PRESENT ILLNESS: Patient is a 27 year old female with no significant past medical history and currently on no home medications. She presents to the ED today with complaints of abdominal pain, nausea, vomiting with an acute onset of epigastric abdominal pain that began 1 day ago associated with nausea, and several episodes of non- bilious, non-bloody vomiting and ongoing nausea. She states her symptoms began yesterday after eating pepperonni pizza before going to bed. Her RUQ abdominal pain persisted and radiated into her back prompting her visit today. She describes this pain as sharp and severe. Patient reports some chills, but denies diarrhea, dark stools, dysphagia. She has never had this happen before. No prior abdominal surgeries or liver problems. Denies ETOH or drug use. Had recently given in August 2017 to a premature 25 week old baby boy who is currently at [facility]. On exam, patient is laying in bed in no acute distress. Not having abdominal pain at the time of exam with palpation. ED labs showed showed elevated LFTs with an elevated bilirubin. She did not appear jaundiced. ER course was notable for: (1) elevated liver panel, elevated bili (2) bili of 4.2, AST,782, ALT,944, (3) gallbladder ultrasound with cholelithiasis, abdominal MRI is pending. Social History: Smoking: denies Alcohol: denies Drugs: denies Family History: Patient mother had cholecystectomy. Allergies No Known Allergies Allergy (Verified 02/15/18 01:58) HOME MEDICATIONS: Home Medications Medication Instructions Recorded Vitamins 1 tab PO DAILY 08/28/17 PHYSICAL EXAMINATION Vital Signs - 24 hr 02/15/18 02/15/18 02/15/18 01:55 04:35 12:26 Temperature 98.2 F 98.6 F 98.0 F Pulse Rate 97 H Pulse Rate [ 88 72 Apical] Respiratory 16 18 16 Rate Blood Pressure 124/75 Blood Pressure 138/70 116/79 [Left Arm] O2 Sat by Pulse 99 99 99 Oximetry (%) GENERAL: Awake, alert, and fully oriented, in no acute distress. HEAD: Normal with no signs of trauma. EYES: Pupils equal, round and reactive to light, extraocular movements intact, sclera anicteric, conjunctiva clear. No lid lag. EARS, NOSE, THROAT: Ears normal, nares patent, oropharynx clear without exudates. Moist mucous membranes. NECK: Normal range of motion, supple without lymphadenopathy, JVD, or masses. LUNGS: Breath sounds equal, clear to auscultation bilaterally. No wheezes, and no crackles. No accessory muscle use. HEART: Regular rate and rhythm ABDOMEN: Soft, nontender, not distended, hypoactive bowel sounds, no guarding, no rebound, no masses. MUSCULOSKELETAL: No CVA tenderness. UPPER EXTREMITIES: No peripheral edema. LOWER EXTREMITIES: No peripheral edema. NEUROLOGICAL: Normal speech. Normal gait. PSYCHIATRIC: Cooperative. Good eye contact. Appropriate mood and affect. SKIN: Warm, dry, normal turgor, no rashes or lesions noted, normal capillary refill. Laboratory Results - last 24 hr 02/15/18 02/15/18 02/15/18 03:00 03:00 03:00 WBC 7.9 RBC 4.93 Hgb 13.8 Hct 41.0 D MCV 83.1 MCH 27.9 MCHC 33.6 RDW 14.0 Plt Count 263 MPV 9.4 D Absolute Neuts (auto) 6.2 Neutrophils % 79.0 Lymphocytes % 14.7 Monocytes % 5.0 Eosinophils % 0.9 Basophils % 0.4 Nucleated RBC % 0 Sodium 141 Potassium 4.4 Chloride 105 Carbon Dioxide 28 Anion Gap 8 BUN 7 Creatinine 0.7 Creat Clearance w eGFR > 60 Random Glucose 132 H Calcium 8.9 Total Bilirubin 4.3 H AST 888 H ALT 997 H Alkaline Phosphatase 175 H Total Protein 7.4 Albumin 3.4 Lipase 95 Urine Color Yellow Urine Appearance Clear Urine pH 6.0 Ur Specific [place] 1.005 Urine Protein Negative Urine Glucose (UA) Negative Urine Ketones Negative Urine Blood 1+ H Urine Nitrite Negative Urine Bilirubin Negative Urine Urobilinogen 2.0 H Ur Leukocyte Esterase Negative Urine WBC (Auto) 2 Urine RBC (Auto) 3 Ur Epithelial Cells Rare Urine HCG, Qual Negative 02/15/18 02/15/18 07:38 07:38 WBC 5.7 RBC 4.51 Hgb 12.7 Hct 37.8 MCV 83.8 MCH 28.1 MCHC 33.5 RDW 13.7 Plt Count 224 MPV 9.1 Absolute Neuts (auto) 3.7 Neutrophils % 64.5 Lymphocytes % 28.0 D Monocytes % 5.8 Eosinophils % 1.4 Basophils % 0.3 Nucleated RBC % 0 Sodium 141 Potassium 4.5 Chloride 109 H Carbon Dioxide 26 Anion Gap 6 L BUN 5 L Creatinine 0.6 Creat Clearance w eGFR > 60 Random Glucose 117 H Calcium 8.3 L Total Bilirubin 4.2 H AST 782 H ALT 944 H Alkaline Phosphatase 167 H Total Protein 6.4 Albumin 3.0 L Lipase Urine Color Urine Appearance Urine pH Ur Specific [place] Urine Protein Urine Glucose (UA) Urine Ketones Urine Blood Urine Nitrite Urine Bilirubin Urine Urobilinogen Ur Leukocyte Esterase Urine WBC (Auto) Urine RBC (Auto) Ur Epithelial Cells Urine HCG, Qual ASSESSMENT/PLAN: Patient is a 27 year old female who presents to the ED today with RUQ abdominal pain and nausea and found to have elevated LFTs, elevated bili and cholelithiasis. GI: Abdominal Pain with elevated LFTs, elevated bili and cholelithiasis: NPO with NS @100cc/hr. Start on Zosyn prophylactically. ID consulted. Monitor labs, vitals, pain levels. Repeat labs tonight and in a.m. Morphine for pain prn. Abdominal MRI pending. Surgery, GI and ID following. fen NS @ 100cc/hr monitor electrolytes NPO Prophy: SCDs full code Visit type - Emergency Visit Emergency Visit: Yes ED Registration Date: 02/15/18 Care time: The patient presented to the Emergency Department on the above date and was hospitalized for further evaluation of their emergent condition. - New Patient This patient is new to me today: Yes Date on this admission: 02/15/18 - Critical Care Critical Care patient: No Hospitalist Screening - Colonoscopy Questionnaire Colonoscopy Questionnaire: Colonoscopy Questionnaire - Patient: 50 - 75 years old and never had a screening colonoscopy: Unknown History of colon or rectal polyps, or CA: Unknown History of IBD, Crohn's disease or UC: Unknown History of abdominal radiation therapy as a child: Unknown - Relative: 1 with colon or rectal CA, or polyps at age 60 or younger: Unknown Colon or rectal CA diagnosed at age 45 or younger: Unknown Multiple relatives with colon or rectal CA: Unknown - Outcome: Screening Result: Negative Screen
[2018-02-15] MEDS ORDERED: PANTOPRAZOLE SODIUM 40 MG VIAL IVPUSH ONE (13:40)
[2018-02-15] MEDS ORDERED: PIPERACILLIN/TAZOB 4.5 GM 4.5 GM/100 ML BAG IVPB ONE (14:02)
[2018-02-15] MEDS ORDERED: PANTOPRAZOLE SODIUM 40 MG VIAL ONE (14:03)
[2018-02-15 14:13] LABS: INR 0.92 (0.82-1.09); PROTHROMBIN TIME (PATIENT) 10.4 SEC (9.7-13.0)
[2018-02-15 14:16] LABS: ACTIVATED PTT 29.6 SECONDS (25.2-36.5)
[2018-02-15] MEDS: SODIUM CHLORIDE 1,000 ML IV SCH (14:22)
--- NOTE | 2018-02-15 15:52 | CON.GI ---
Consult Consult Specialty:: Gastroenterology- ERCP Reason for Consultation:: transaminitis; epigastric pain; cholelithiasis - History of Present Illness Chief Complaint: burning sensation in stomach and back History of Present Illness: Ms Brunner is a 27 y/o female with no significant PMH, presented to [facility] with a one day history of burning epigastric and RUQ pain radiating to the back. Patient states that she has had episodes like this in the past but they normally resolved within a few hours. She did not take anything for the pain and noted to have " made herself throw up" because she felt very nauseous however, that was the only episode of vomiting. She currently states the pain has since resolved and is no longer feeling nauseous. She also denies any episodes of diarrhea. Her labs were noted to have a T-patrick of 4.2, AST: 782, ALT: 944 Albumin: 3 and total protein: 6.4. On gallbladder U/S cholelithiasis was noted and abdominal MRI is pending. Patient's mother was noted to have cholecystectomy. - History Source History Provided By: Patient - Past Medical History ...LMP: 01/24/18 ...: 1 ...Para: 1 - Alcohol/Substance Use Hx Alcohol Use: No - Smoking History Smoking history: Never smoked Have you smoked in the past 12 months: No - Social History History of Recent Travel: Yes ([place] in July) <Deanna Flores - Last Filed: 02/15/18 16:07> Home Medications <Deanna Flores - Last Filed: 02/15/18 16:07> <Vazquez Cain - Last Filed: 02/15/18 19:51> - Allergies Allergies/Adverse Reactions: Allergies Allergy/AdvReac Type Severity Reaction Status Date / Time No Known Allergies Allergy Verified 02/15/18 01:58 - Home Medications Home Medications: Ambulatory Orders NK [No Known Home Medication] 02/15/18 Family Disease History - Family Disease History Family Disease History: Other: Mother (gallstones, cholecystectomy) Other Family History: no known family history of any GI malignancies <Deanna Flores - Last Filed: 02/15/18 16:07> Review of Systems - Review of Systems Gastrointestinal: reports: Abdominal Pain (slight RUQ pain). denies: Diarrhea, Rectal Bleeding, Vomiting <Deanna Flores - Last Filed: 02/15/18 16:07> Physical Exam-GI Vital Signs: Vital Signs Temperature 98.0 F 02/15/18 12:26 Pulse Rate 80 02/15/18 15:41 Respiratory Rate 18 02/15/18 15:41 Blood Pressure 125/74 02/15/18 15:41 O2 Sat by Pulse Oximetry (%) 99 02/15/18 15:41 Constitutional: Yes: No Distress Eyes: No: Sclera Icterus Cardiovascular: Yes: Regular Rate and Rhythm. No: Murmur Respiratory: Yes: CTA Bilaterally ...Auscultate: Yes: Normoactive Bowel Sounds ...Palpate: Yes: Soft, Tenderness (slight RUQ tenderness on deep palpation). No : Hepatomegaly, Splenomegaly ...Percussion: Yes: Other (normal) Edema: No Neurological: Yes: Alert Labs: CBC, BMP 02/15/18 07:38 INR, PTT INR 0.92 (0.82-1.09) 02/15/18 13:43 CMP Sodium 141 mmol/L (136-145) 02/15/18 07:38 Potassium 4.5 mmol/L (3.5-5.1) 02/15/18 07:38 Chloride 109 mmol/L (98-107) H 02/15/18 07:38 Carbon Dioxide 26 mmol/L (21-32) 02/15/18 07:38 Anion Gap 6 (8-16) L 02/15/18 07:38 BUN 5 mg/dL (7-18) L 02/15/18 07:38 Creatinine 0.6 mg/dL (0.55-1.02) 02/15/18 07:38 Creat Clearance w eGFR > 60 (>60) 02/15/18 07:38 Random Glucose 117 mg/dL (74-106) H 02/15/18 07:38 Calcium 8.3 mg/dL (8.5-10.1) L 02/15/18 07:38 Total Bilirubin 4.2 mg/dL (0.2-1.0) H 02/15/18 07:38 AST 782 U/L (15-37) H 02/15/18 07:38 ALT 944 U/L (12-78) H 02/15/18 07:38 Alkaline Phosphatase 167 U/L (45-117) H 02/15/18 07:38 Total Protein 6.4 g/dl (6.4-8.2) 02/15/18 07:38 Albumin 3.0 g/dl (3.4-5.0) L 02/15/18 07:38 Lipase 95 U/L (73-393) 02/15/18 03:00 <Deanna Flores - Last Filed: 02/15/18 16:07> Vital Signs: Vital Signs Temperature 98.7 F 02/15/18 16:34 Pulse Rate 75 02/15/18 16:34 Respiratory Rate 15 02/15/18 16:34 Blood Pressure 109/52 02/15/18 16:34 O2 Sat by Pulse Oximetry (%) 99 02/15/18 16:58 Labs: CBC, BMP 02/15/18 07:38 02/15/18 15:30 INR, PTT INR 0.92 (0.82-1.09) 02/15/18 13:43 <Vazquez Cain - Last Filed: 02/15/18 19:51> Imaging - Results Ultrasound: Report Reviewed, Image Reviewed <Deanna Flores - Last Filed: 02/15/18 16:07> Problem List - Problems (1) Cholecystitis Assessment/Plan: given patients clinical picture of abdominal pain radiating to the back, lab values, and U/S findings; stone obstruction cannot be ruled out -patient will be going tomorrow for ERCP with Dr. Cain, who will discuss the risks of the procedure with patient prior to this taking place -will continue to monitor for signs of cholangitis- vitals, CMP, -pending abdominal MRI -patient will be NPO after midnight in anticipation for tomorrows procedure Code(s): K81.9 - CHOLECYSTITIS, UNSPECIFIED (2) Cholelithiasis Code(s): K80.20 - CALCULUS OF GALLBLADDER W/O CHOLECYSTITIS W/O OBSTRUCTION Qualifiers: Cholelithiasis location: gallbladder Cholecystitis acuity: acute (3) Elevated transaminase level Code(s): R74.0 - NONSPEC ELEV OF LEVELS OF TRANSAMNS & LACTIC ACID DEHYDRGNSE (4) Biliary obstruction Code(s): K83.1 - OBSTRUCTION OF BILE DUCT <Deanna Flores - Last Filed: 02/15/18 16:07> Assessment/Plan Ms Brunner is currently not in any distress, however, given her rising bilirubin level and LFTS' stone obstruction cannot be ruled out and the necessary steps need to be taken to reduce the risk of cholangitis: -patient will be undergoing ERCP tomorrow with Dr. Cain, who will be discussing the risks of the procedure with the patient prior -patient will be kept NPO after midnight -pending already ordered abdominal MRI M <Deanna Flores - Last Filed: 02/15/18 16:07> ATTENDING PHYSICIAN STATEMENT I saw and evaluated the patient. I reviewed the resident's note and discussed the case with the resident. I agree with the resident's findings and plan as documented. SUBJECTIVE: 27F who is 6 months had fluctuating biliary colic type pain yesterday radiating into her back that was worse than previous episodes. Mother and aunt have had GB surgeries. OBJECTIVE: Alert Lungs: clear Cor: RR, nl S1S2 Abd: soft, BS normoactive, nontender, no masses ASSESSMENT AND PLAN:Jaundice with biliary colic is indicative of choledocholithiasis. Will check morning LFTs but this degree of jaundice is an indication for ERCP even in the face of a negative MRCP. I see no obvious CBD stones on the MRCP but await an official reading. I have discussed the very likely need for ERCP with sphincterotomy and stone extractions and possible stenting in detail with Lydia, her mother and other present significant others. I have informed her of the potential for such complication as perforation, hemorrhage and multiorgan failure related to ERCP induced pancreatitis and that such complications occur at a 5 - 15% incidence. She has granted an informed consent . I have discussed the case with Dr. Rodriguez who is in agreement. Will proceed with ERCP tomorrow <Vazquez Cain - Last Filed: 02/15/18 19:51>
[2018-02-15 16:30] LABS: ALBUMIN 2.9 g/dl (3.4-5.0); ALK PHOS 184 U/L (45-117); ANION GAP 7 (8-16); BILIRUBIN,TOTAL 4.4 mg/dL (0.2-1.0); BLOOD UREA NITROGEN 5 mg/dL (7-18); CALCIUM 8.1 mg/dL (8.5-10.1); CHLORIDE 113 mmol/L (98-107); CO2 24 mmol/L (21-32); CREATININE 0.6 mg/dL (0.55-1.02); GLUCOSE,RANDOM 94 mg/dL (74-106); SODIUM 144 mmol/L (136-145); TOT PROT 6.2 g/dl (6.4-8.2)
[2018-02-15] MEDS ORDERED: DEXTROSE 5%-WATER - 50 ML IVPB ONE (17:26)
[2018-02-15] MEDS ORDERED: PIPERACILLIN/TAZOBACTAM 3.375 GM VIAL IVPB ONE (17:26)
[2018-02-15 17:43] LABS: BILIRUBIN,DIRECT 2.7 mg/dL (0.0-0.2); POTASSIUM 4.7 mmol/L (3.5-5.1); SGOT/AST 596 U/L (15-37); SGPT/ALT 893 U/L (12-78)
[2018-02-15] MEDS ORDERED: morphine SULFATE 4 MG/ML VIAL IVPUSH PRN (18:03)
[2018-02-15] MEDS: PIPERACILLIN/TAZOB 3.375 GM 3.375 GM in DEXTROSE 5%-WATER - 50 ML IVPB SCH (18:26)
[2018-02-16] MEDS: SODIUM CHLORIDE 1,000 ML IV SCH ×3 (00:05→18:12)
[2018-02-16] MEDS ORDERED: DEXTROSE 5%-WATER - 50 ML IVPB ONE ×4 (01:20→22:57)
[2018-02-16] MEDS ORDERED: PIPERACILLIN/TAZOBACTAM 3.375 GM VIAL IVPB ONE ×4 (01:20→22:57)
[2018-02-16] MEDS: PIPERACILLIN/TAZOB 3.375 GM 3.375 GM in DEXTROSE 5%-WATER - 50 ML IVPB SCH ×3 (01:40→18:12)
[2018-02-16 06:56] LABS: BASO % 0.4 % (0-2.0); EOS % 4.5 % (0-4.5); HEMATOCRIT 36.8 % (32.4-45.2); HEMOGLOBIN 12.3 GM/dL (10.7-15.3); LYMPH % 38.3 % (8-40); MCH 28.2 pg (25.7-33.7); MCHC 33.5 g/dl (32.0-36.0); MEAN CELL VOLUME 84.2 fl (80-96); MEAN PLT VOLUME 9.5 fl (7.5-11.1); MONO % 6.4 % (3.8-10.2); NEUT % 50.4 % (42.8-82.8); PLATELET COUNT 214 K/MM3 (134-434); RBC 4.37 M/mm3 (3.60-5.2); RDW 14.1 % (11.6-15.6); WHITE BLOOD COUNT 5.2 K/mm3 (4.0-10.0)
--- NOTE | 2018-02-16 09:43 | PN ---
Progress Note, Physician Chief Complaint: abdominal pain History of Present Illness: 27yo female PMH obesity presents to the ED with complaints of abdominal pain, nausea, vomiting with an acute onset of epigastric abdominal pain that began 1 day ago. Stable overnight. No Complaints - Current Medication List Current Medications: Active Medications Sodium Chloride (Normal Saline -) 1,000 mls @ 100 mls/hr IV ASDIR JEANIE Last Admin: 02/16/18 00:05 Dose: 100 mls/hr Piperacillin Sod/Tazobactam (Sod 3.375 gm/ Dextrose) 50 mls @ 100 mls/hr IVPB Q8H-IV JEANIE Last Admin: 02/16/18 01:40 Dose: 100 mls/hr Indomethacin (Indocin Suppository -) [address] ONCE ONE Stop: 02/16/18 10:01 Morphine Sulfate (Morphine Sulfate) 2 mg IVPUSH Q4H PRN PRN Reason: PAIN 4-6 Pantoprazole Sodium (Protonix Iv) 40 mg IVPUSH DAILY [facility] - Objective Vital Signs: Vital Signs Temperature 98.2 F 02/16/18 08:47 Pulse Rate 69 02/16/18 08:47 Respiratory Rate 20 02/16/18 08:47 Blood Pressure 120/50 02/16/18 08:47 O2 Sat by Pulse Oximetry (%) 99 02/15/18 21:00 Constitutional: Yes: Well Nourished, No Distress, Calm, Obese Eyes: Yes: Conjunctiva Clear, EOM Intact HENT: Yes: Atraumatic, Normocephalic Neck: Yes: Supple, Trachea Midline Respiratory: Yes: Regular, CTA Bilaterally Gastrointestinal: Yes: Normal Bowel Sounds, Soft, Abdomen, Obese. No: Tenderness ...Rectal Exam: Yes: Deferred Genitourinary: No: CVA Tenderness - Left, CVA Tenderness - Right Extremities: No: Cool, Cyanosis Edema: No Peripheral Pulses WNL: Yes Peripheral Pulses: Left Radial: 2+, Right Radial: 2+, Left Doralis Pedis: 2+, Right Dorsalis Pedis: 2+ Neurological: Yes: Alert, Oriented Psychiatric: Yes: Alert, Oriented Labs: CBC, BMP 02/16/18 06:30 INR, PTT INR 0.92 (0.82-1.09) 02/15/18 13:43 Problem List - Problems (1) Cholecystitis Assessment/Plan: 27 yo obese female with Choledocholithiais, s/p ERCP no obstruction NPO and IVF hydration empiric IV antibiotics Discussed with patient risks, benefits and alternatives of laparoscopic possible open cholecystectomy, including but not limited to bleeding, infection , injury to adjacent structures, leak or injury, intraabdominal abscess, need for further procedures, ; alternatives include antibiotics, delayed or no surgery - risks of this include failure of nonoperative therapy, perforation, sepsis, recurrence, . Patient desires to proceed with operation - will take to OR for above. Informed consent signed for same. Code(s): K81.9 - CHOLECYSTITIS, UNSPECIFIED (2) Choledocholithiasis Code(s): K80.50 - CALCULUS OF BILE DUCT W/O CHOLANGITIS OR CHOLECYST W/O OBST (3) Obesity (BMI 30-39.9) Code(s): E66.9 - OBESITY, UNSPECIFIED (4) Elevated transaminase level Code(s): R74.0 - NONSPEC ELEV OF LEVELS OF TRANSAMNS & LACTIC ACID DEHYDRGNSE (5) Hyperbilirubinemia Code(s): E80.6 - OTHER DISORDERS OF BILIRUBIN METABOLISM
[2018-02-16 09:49] LABS: ALBUMIN 2.8 g/dl (3.4-5.0); ALK PHOS 165 U/L (45-117); AMYLASE 46 U/L (25-115); ANION GAP 9 (8-16); BILIRUBIN,DIRECT 1.3 mg/dL (0.0-0.2); BILIRUBIN,TOTAL 2.6 mg/dL (0.2-1.0); BLOOD UREA NITROGEN 5 mg/dL (7-18); CALCIUM 7.9 mg/dL (8.5-10.1); CHLORIDE 110 mmol/L (98-107); CO2 23 mmol/L (21-32); CREATININE 0.6 mg/dL (0.55-1.02); GLUCOSE,RANDOM 82 mg/dL (74-106); MAGNESIUM 2.1 mg/dL (1.8-2.4); POTASSIUM 4.1 mmol/L (3.5-5.1); SGOT/AST 337 U/L (15-37); SODIUM 142 mmol/L (136-145)
[2018-02-16 09:51] LABS: SGPT/ALT 773 U/L (12-78)
[2018-02-16] MEDS: PANTOPRAZOLE SODIUM 40 MG VIAL IVPUSH SCH (09:59)
[2018-02-16] MEDS ORDERED: INDOMETHACIN 50 MG RECTAL SUPPOSITORY PR ONE (10:00)
--- NOTE | 2018-02-16 10:07 | PN ---
Physical Exam: SUBJECTIVE: Patient seen and examined at the bedside. Feels well today, no abdominal pain or nausea. OBJECTIVE: for ercp today with Dr. Hope surgery per Dr. Rodriguez after repeat labs in a.m. Vital Signs Period Temp Pulse Resp BP Sys/Leach Pulse Ox Last 24 Hr 98 F-98.7 F 56-80 15-20 97-125/50-79 99-99 GENERAL: Awake, alert, and fully oriented, in no acute distress. HEAD: Normal with no signs of trauma. EYES: Pupils equal, round and reactive to light, extraocular movements intact, sclera anicteric, conjunctiva clear. No lid lag. EARS, NOSE, THROAT: Ears normal, nares patent, oropharynx clear without exudates. Moist mucous membranes. NECK: Normal range of motion, supple without lymphadenopathy, JVD, or masses. LUNGS: Breath sounds equal, clear to auscultation bilaterally. No wheezes, and no crackles. No accessory muscle use. HEART: Regular rate and rhythm ABDOMEN: Soft, nontender, not distended, hypoactive bowel sounds, no guarding, no rebound, no masses. MUSCULOSKELETAL: No CVA tenderness. UPPER EXTREMITIES: No peripheral edema. LOWER EXTREMITIES: No peripheral edema. NEUROLOGICAL: Normal speech. Normal gait. PSYCHIATRIC: Cooperative. Good eye contact. Appropriate mood and affect. SKIN: Warm, dry, normal turgor, no rashes or lesions noted, normal capillary refill. Laboratory Results - last 24 hr 02/15/18 02/15/18 02/15/18 12:31 13:43 15:30 WBC RBC Hgb Hct MCV MCH MCHC RDW Plt Count MPV Absolute Neuts (auto) Neutrophils % Lymphocytes % Monocytes % Eosinophils % Basophils % Nucleated RBC % PT with INR 10.40 INR 0.92 PTT (Actin FS) 29.6 Sodium 144 Potassium 4.7 Chloride 113 H Carbon Dioxide 24 Anion Gap 7 L BUN 5 L Creatinine 0.6 Creat Clearance w eGFR > 60 Random Glucose 94 Calcium 8.1 L Magnesium Total Bilirubin 4.4 H Direct Bilirubin 2.7 H AST 596 H ALT 893 H Alkaline Phosphatase 184 H D Troponin I Total Protein 6.2 L Albumin 2.9 L Total Amylase Blood Type O POSITIVE Antibody Screen Negative 02/15/18 02/16/18 02/16/18 20:19 06:30 06:30 WBC 5.2 RBC 4.37 Hgb 12.3 Hct 36.8 MCV 84.2 MCH 28.2 MCHC 33.5 RDW 14.1 Plt Count 214 MPV 9.5 Absolute Neuts (auto) 2.6 Neutrophils % 50.4 D Lymphocytes % 38.3 D Monocytes % 6.4 Eosinophils % 4.5 D Basophils % 0.4 Nucleated RBC % 0 PT with INR INR PTT (Actin FS) Sodium 142 Potassium 4.1 Chloride 110 H Carbon Dioxide 23 Anion Gap 9 BUN 5 L Creatinine 0.6 Creat Clearance w eGFR > 60 Random Glucose 82 Calcium 7.9 L Magnesium 2.1 Total Bilirubin 2.6 H Direct Bilirubin 1.3 H AST 337 H ALT 773 H Alkaline Phosphatase 165 H D Troponin I < 0.02 Total Protein 6.0 L Albumin 2.8 L Total Amylase 46 Blood Type Antibody Screen Active Medications Generic Name Dose Route Start Last Admin Trade Name Freq PRN Reason Stop Dose Admin Sodium Chloride 1,000 mls @ 100 mls/hr 02/15/18 13:45 02/16/18 00:05 Normal Saline - IV 100 mls/hr ASDIR JEANIE Administration Piperacillin Sod/Tazobactam 50 mls @ 100 mls/hr 02/15/18 18:00 02/16/18 09:59 Sod 3.375 gm/ Dextrose IVPB 100 mls/hr Q8H-IV JEANIE Administration Morphine Sulfate 2 mg 02/15/18 18:03 Morphine Sulfate IVPUSH Q4H PRN PAIN 4-6 Pantoprazole Sodium 40 mg 02/16/18 10:00 02/16/18 09:59 Protonix Iv IVPUSH 40 mg DAILY JEANIE Administration ASSESSMENT/PLAN: Patient is a 27 year old female who presents to the ED today with RUQ abdominal pain and nausea and found to have elevated LFTs, elevated bili and cholelithiasis. GI: Abdominal Pain with elevated LFTs, elevated bili and cholelithiasis: Liver enzymes improving on repeat labs. On NS @100cc/hr. On Zosyn empirically. ERCP today with no stones, liquid diet tonight then NPO for possible leighton tomorrow pending morning labs. Morphine managing pain, nausea resolved. fen NS @ 100cc/hr monitor electrolytes NPO at midnight Prophy: SCDs full code Visit type - Emergency Visit Emergency Visit: Yes ED Registration Date: 02/15/18 Care time: The patient presented to the Emergency Department on the above date and was hospitalized for further evaluation of their emergent condition. - New Patient This patient is new to me today: No - Critical Care Critical Care patient: No - Discharge Referral Referred to [facility] Med P.C.: No
--- NOTE | 2018-02-16 10:11 | CON.ID ---
Consult Consult Specialty:: infectious diseases Referred by:: елена Reason for Consultation:: abd pain ,choleycystitis - History of Present Illness Chief Complaint: abd pain History of Present Illness: 27yo female PMH obesity admitted with complaints of abdominal pain, nausea, vomiting with onset of epigastric abdominal pain that began about 2 days back pain was associated wiht nausea and vomiting,currently she feels better patients pain persisted and she mentions that it was going to her back and was not getting better and that is why the patient came to the hospital pain was in ruq on admission patient was evaluated and patient was found to have early cholecystitis and also got an abd mri plan is for patient to go to ercp and then surgery probably post ercp currently her pain is in control and patient is stable - History Source History Provided By: Patient Limitations to Obtaining History: No Limitations - Past Medical History ...LMP: 01/17/18 ...: No - Alcohol/Substance Use Hx Alcohol Use: No - Smoking History Smoking history: Never smoked Have you smoked in the past 12 months: No - Social History History of Recent Travel: Yes ([place] in July) Home Medications - Allergies Allergies/Adverse Reactions: Allergies Allergy/AdvReac Type Severity Reaction Status Date / Time No Known Allergies Allergy Verified 02/15/18 01:58 - Home Medications Home Medications: Ambulatory Orders NK [No Known Home Medication] 02/15/18 Family Disease History - Family Disease History Family Disease History: Other: Mother (gallstones, cholecystectomy) Other Family History: no known family history of any GI malignancies Review of Systems - Review of Systems Constitutional: reports: No Symptoms Eyes: reports: No Symptoms HENT: reports: No Symptoms Neck: reports: No Symptoms Cardiovascular: reports: No Symptoms Respiratory: reports: No Symptoms Gastrointestinal: reports: Abdominal Pain, Nausea, Vomiting Genitourinary: reports: No Symptoms Musculoskeletal: reports: No Symptoms Integumentary: reports: No Symptoms Neurological: reports: No Symptoms Endocrine: reports: No Symptoms Hematology/Lymphatic: reports: No Symptoms Psychiatric: reports: No Symptoms Physical Exam Vital Signs: Vital Signs Temperature 98.2 F 02/16/18 08:47 Pulse Rate 69 02/16/18 08:47 Respiratory Rate 20 02/16/18 08:47 Blood Pressure 120/50 02/16/18 08:47 O2 Sat by Pulse Oximetry (%) 99 02/15/18 21:00 Constitutional: Yes: Well Nourished, Calm, Obese Eyes: Yes: Conjunctiva Clear HENT: Yes: Atraumatic, Normocephalic Neck: Yes: Supple, Trachea Midline Cardiovascular: Yes: Regular Rate and Rhythm Respiratory: Yes: Regular, CTA Bilaterally Gastrointestinal: Yes: Normal Bowel Sounds, Soft, Tenderness (minimal) Musculoskeletal: Yes: WNL Extremities: Yes: WNL Neurological: Yes: Alert, Oriented Psychiatric: Yes: Alert, Oriented Labs: CBC, BMP 02/16/18 06:30 02/16/18 06:30 Imaging - Results Chest X-ray: Report Reviewed, Image Reviewed Ultrasound: Report Reviewed, Image Reviewed MRI: Image Reviewed Assessment/Plan Problem List - Problems (1) Cholecystitis Code(s): K81.9 - CHOLECYSTITIS, UNSPECIFIED (2) Choledocholithiasis Code(s): K80.50 - CALCULUS OF BILE DUCT W/O CHOLANGITIS OR CHOLECYST W/O OBST (3) Obesity (BMI 30-39.9) Code(s): E66.9 - OBESITY, UNSPECIFIED (4) Elevated transaminase level Code(s): R74.0 - NONSPEC ELEV OF LEVELS OF TRANSAMNS & LACTIC ACID DEHYDRGNSE (5) Hyperbilirubinemia Code(s): E80.6 - OTHER DISORDERS OF BILIRUBIN ME patient going for ercp plan will start patient on empiric abx await for ercp and choley once patient gets the procedure polanco stop abx rest as per surgery and primary team
[2018-02-16 11:16] LABS: HEMATOCRIT 38.8 % (32.4-45.2); HEMOGLOBIN 12.9 GM/dL (10.7-15.3); MCHC 33.4 g/dl (32.0-36.0); MEAN PLT VOLUME 9.2 fl (7.5-11.1); PLATELET COUNT 223 K/MM3 (134-434); RBC 4.62 M/mm3 (3.60-5.2); RDW 14.2 % (11.6-15.6); WHITE BLOOD COUNT 6.1 K/mm3 (4.0-10.0)
[2018-02-16 11:24] LABS: INR 1.05 (0.82-1.09); PROTHROMBIN TIME (PATIENT) 11.9 SEC (9.7-13.0)
[2018-02-16] MEDS ORDERED: PT OWN MED DRAWER 7, Y5N ONE (11:26)
[2018-02-16 11:50] LABS: CHLORIDE 108 mmol/L (98-107); POTASSIUM 4.2 mmol/L (3.5-5.1); SODIUM 141 mmol/L (136-145)
[2018-02-16 12:23] LABS: ALBUMIN 3.1 g/dl (3.4-5.0); AMYLASE 65 U/L (25-115); ANION GAP 9 (8-16); BILIRUBIN,DIRECT 1.1 mg/dL (0.0-0.2); BILIRUBIN,TOTAL 2.3 mg/dL (0.2-1.0); BLOOD UREA NITROGEN 6 mg/dL (7-18); CALCIUM 8.4 mg/dL (8.5-10.1); CO2 24 mmol/L (21-32); CREATININE 0.6 mg/dL (0.55-1.02); GLUCOSE,RANDOM 98 mg/dL (74-106); TOT PROT 6.5 g/dl (6.4-8.2)
[2018-02-16 12:24] LABS: LIPASE 267 U/L (73-393)
[2018-02-16] MEDS ORDERED: ONDANSETRON 4 MG/2 ML VIAL ONE (16:00)
[2018-02-16] MEDS ORDERED: ROCURONIUM BROMIDE 50 MG/5 ML VIAL ONE (16:00)
[2018-02-16] MEDS ORDERED: GLYCOPYRROLATE 0.2 MG/1 ML VIAL ONE ×3 (16:00)
[2018-02-16] MEDS ORDERED: NEOSTIGMINE METHYLSULFATE 0.5 MG/ML - 10 ML MDV ONE (16:00)
[2018-02-16] MEDS ORDERED: DEXAMETHASONE SOD PHOSPHATE 10 MG/1 ML VIAL ONE (16:01)
[2018-02-16] MEDS ORDERED: LACTATED RINGERS SOLUTION 1,000 ML/1,000 ML INFUS.BAG IV SCH ×2 (17:00→23:00)
--- NOTE | 2018-02-16 17:06 | PN ---
Progress Note (short form) - Note Progress Note: GI procedure note: Please see scanned ERCP. After CBD was cannulated, cholangiogram revealed no obvious residual stones. Given her recent jaundice and to absolutely exclude any residual stones, a small sphincterotomy was made the extractor balloon yielded only small stone debris. Dr. Rodriguez was informed that he could proceed with cholecystectomy. Problem List - Problems (1) Cholecystitis Code(s): K81.9 - CHOLECYSTITIS, UNSPECIFIED (2) Cholelithiasis Code(s): K80.20 - CALCULUS OF GALLBLADDER W/O CHOLECYSTITIS W/O OBSTRUCTION (3) Elevated transaminase level Code(s): R74.0 - NONSPEC ELEV OF LEVELS OF TRANSAMNS & LACTIC ACID DEHYDRGNSE (4) Biliary obstruction Code(s): K83.1 - OBSTRUCTION OF BILE DUCT
--- NOTE | 2018-02-16 17:26 | PN ---
Teaching Attending Note Name of Resident: Deanna Flores ATTENDING PHYSICIAN STATEMENT I saw and evaluated the patient. I reviewed the resident's note and discussed the case with the resident. I agree with the resident's findings and plan as documented. SUBJECTIVE: Please see postprocedure ERCP note. No stones founds even when the duct was swept with a balloon. Only stone debris was yielded OBJECTIVE: Stable vital signs following the procedure ASSESSMENT AND PLAN: Brisk fluids. Discussed case with Dr Rodriguez who can proceed with cholecystectomy if pancreatitis doesn't develop.
[2018-02-17] MEDS: PIPERACILLIN/TAZOB 3.375 GM 3.375 GM in DEXTROSE 5%-WATER - 50 ML IVPB SCH ×3 (02:24→17:43)
[2018-02-17] MEDS ORDERED: LACTATED RINGERS SOLUTION 1,000 ML/1,000 ML INFUS.BAG IV SCH ×2 (03:00→09:01)
[2018-02-17 07:56] LABS: BASO % 0.2 % (0-2.0); HEMOGLOBIN 13.1 GM/dL (10.7-15.3); LYMPH % 14.5 % (8-40); MCH 28.1 pg (25.7-33.7); MCHC 33.5 g/dl (32.0-36.0); MEAN CELL VOLUME 83.9 fl (80-96); MEAN PLT VOLUME 9.7 fl (7.5-11.1); MONO % 4.9 % (3.8-10.2); NEUT % 80.4 % (42.8-82.8); PLATELET COUNT 248 K/MM3 (134-434); RBC 4.64 M/mm3 (3.60-5.2); RDW 14.2 % (11.6-15.6); WHITE BLOOD COUNT 10.2 K/mm3 (4.0-10.0)
[2018-02-17 08:49] LABS: ALBUMIN 3.1 g/dl (3.4-5.0); AMYLASE 61 U/L (25-115); ANION GAP 11 (8-16); BILIRUBIN,DIRECT 0.6 mg/dL (0.0-0.2); BLOOD UREA NITROGEN 6 mg/dL (7-18); CALCIUM 8.8 mg/dL (8.5-10.1); CHLORIDE 107 mmol/L (98-107); CO2 23 mmol/L (21-32); CREATININE 0.5 mg/dL (0.55-1.02); GLUCOSE,RANDOM 98 mg/dL (74-106); LIPASE 168 U/L (73-393); POTASSIUM 4.1 mmol/L (3.5-5.1); SGOT/AST 119 U/L (15-37); SODIUM 141 mmol/L (136-145); TOT PROT 6.6 g/dl (6.4-8.2)
[2018-02-17 08:51] LABS: ALK PHOS 160 U/L (45-117); BILIRUBIN,TOTAL 1.3 mg/dL (0.2-1.0)
[2018-02-17 08:57] LABS: SGPT/ALT 583 U/L (12-78)
[2018-02-17] MEDS ORDERED: PIPERACILLIN/TAZOBACTAM 3.375 GM VIAL IVPB ONE (09:00)
[2018-02-17] MEDS ORDERED: DEXTROSE 5%-WATER - 50 ML IVPB ONE (09:00)
[2018-02-17] MEDS: PANTOPRAZOLE SODIUM 40 MG VIAL IVPUSH SCH (09:37)
[2018-02-17] MEDS: LACTATED RINGERS SOLUTION 1,000 ML IV SCH ×3 (09:37→20:17)
--- NOTE | 2018-02-17 13:04 | PN ---
Progress Note (short form) - Note Progress Note: c/o mild epigastric discomfort but significantly improved since admission. denies CP, SOB, fever, chills, N/V/C/D, epigastric pain Current Medications Generic Name Dose Route Start Last Admin Trade Name Freq PRN Reason Stop Dose Admin Fentanyl 50 mcg 02/16/18 17:20 Sublimaze Injection - IVPUSH Q5M PRN PAIN-PACU ORDER X 4 DOSES ONLY Piperacillin Sod/Tazobactam 50 mls @ 100 mls/hr 02/15/18 18:00 02/17/18 09:37 Sod 3.375 gm/ Dextrose IVPB 100 mls/hr Q8H-IV JEANIE Administration Lactated Ringer's 1,000 ml in 1,000 mls @ 125 mls/hr 02/17/18 09:01 02/17/18 09:37 Lactated Ringers Solution IV 02/17/18 15:00 Not Given ASDIR JEANIE Lactated Ringer's 1,000 mls @ 125 mls/hr 02/16/18 17:30 02/17/18 09:37 Lactated Ringers Solution IV Not Given ASDIR JEANIE Morphine Sulfate 2 mg 02/15/18 18:03 Morphine Sulfate IVPUSH Q4H PRN PAIN 4-6 Pantoprazole Sodium 40 mg 02/16/18 10:00 02/17/18 09:37 Protonix Iv IVPUSH 40 mg DAILY JEANIE Administration Last Vital Signs Temp Pulse Resp BP Pulse Ox 98.2 F 77 18 95/60 98 02/17/18 09:23 02/17/18 09:23 02/17/18 09:23 02/17/18 09:23 02/16/18 21:00 General NAD CV S1 S2 + Lungs CTA B/L no wheezing/rales/rhonchi Abdomen soft +RUQ tenderness, no rebound or guarding. obese Extremities no pedal edema CBCD WBC 10.2 K/mm3 (4.0-10.0) H 02/17/18 06:40 RBC 4.64 M/mm3 (3.60-5.2) 02/17/18 06:40 Hgb 13.1 GM/dL (10.7-15.3) 02/17/18 06:40 Hct 39.0 % (32.4-45.2) 02/17/18 06:40 MCV 83.9 fl (80-96) 02/17/18 06:40 MCHC 33.5 g/dl (32.0-36.0) 02/17/18 06:40 RDW 14.2 % (11.6-15.6) 02/17/18 06:40 Plt Count 248 K/MM3 (134-434) 02/17/18 06:40 MPV 9.7 fl (7.5-11.1) 02/17/18 06:40 CMP Sodium 141 mmol/L (136-145) 02/17/18 06:40 Potassium 4.1 mmol/L (3.5-5.1) 02/17/18 06:40 Chloride 107 mmol/L (98-107) 02/17/18 06:40 Carbon Dioxide 23 mmol/L (21-32) 02/17/18 06:40 Anion Gap 11 (8-16) 02/17/18 06:40 BUN 6 mg/dL (7-18) L 02/17/18 06:40 Creatinine 0.5 mg/dL (0.55-1.02) L 02/17/18 06:40 Creat Clearance w eGFR > 60 (>60) 02/17/18 06:40 Calcium 8.8 mg/dL (8.5-10.1) 02/17/18 06:40 Total Bilirubin 1.3 mg/dL (0.2-1.0) H 02/17/18 06:40 AST 119 U/L (15-37) H 02/17/18 06:40 ALT 583 U/L (12-78) H 02/17/18 06:40 Alkaline Phosphatase 160 U/L (45-117) H D 02/17/18 06:40 Total Protein 6.6 g/dl (6.4-8.2) 02/17/18 06:40 Albumin 3.1 g/dl (3.4-5.0) L 02/17/18 06:40 A/P 27yo F with no PMH presented with RUQ pain assoc with nausea and transaminitis and found to have acute cholecystitis with cholelithasis 1. Acute cholecystitis with cholelithasis- s/p ERCP yesterday with appeared to have stone already passed but balloon sweep was done and debris removed. Transmainitis slowly improving. NPO for laprascopic cholecystectomy today. on empiric zosyn which can be d/c after surgery. diet advanced as tolerated. further recommendations per surgery pain control. 2. DVT ppx- EAM 3. pt eager to go home as her son is currently in the hospital. informed her possibility tomorrow pending complications from surgery and if LFT are trending down. Visit type - Emergency Visit Emergency Visit: Yes ED Registration Date: 02/15/18 Care time: The patient presented to the Emergency Department on the above date and was hospitalized for further evaluation of their emergent condition. - New Patient This patient is new to me today: Yes Date on this admission: 02/17/18 - Critical Care Critical Care patient: No - Discharge Referral Referred to [facility] Med P.C.: No
--- NOTE | 2018-02-17 13:55 | OP ---
Operative Note - Note: Operative Date: 02/17/18 Pre-Operative Diagnosis: choledocholithiasis and cholecystitis Operation: Laparoscopic cholecystetctomy Findings: distended gallbladder minimal edema Post-Operative Diagnosis: Same as Pre-op Surgeon: Mat Rodriguez Extension Service Specialist: Bentley Rees Anesthesiologist/WELDING TESTER: Edward Stevenson Anesthesia: General, Local (marcaine 0.5% 20ml) Specimens Removed: gallbladder Estimated Blood Loss (mls): 20 Fluid Volume Replaced (mls): 1,000 Operative Report Dictated: Yes
--- NOTE | 2018-02-17 15:45 | PN ---
Progress Note, Physician History of Present Illness: Pt seen, events noted. Awaiting cholecystectomy today. Denies abd pain/n/v, fever. No specific complaints. - Current Medication List Current Medications: Active Medications Fentanyl (Sublimaze Injection -) 50 mcg IVPUSH Q5M PRN PRN Reason: PAIN-PACU ORDER X 4 DOSES ONLY Piperacillin Sod/Tazobactam (Sod 3.375 gm/ Dextrose) 50 mls @ 100 mls/hr IVPB Q8H-IV [facility] Last Admin: 02/17/18 09:37 Dose: 100 mls/hr Lactated Ringer's (Lactated Ringers Solution) 1,000 mls @ 125 mls/hr IV ASDIR [facility] Last Admin: 02/17/18 09:37 Dose: Not Given Morphine Sulfate (Morphine Sulfate) 2 mg IVPUSH Q4H PRN PRN Reason: PAIN 4-6 Pantoprazole Sodium (Protonix Iv) 40 mg IVPUSH DAILY [facility] Last Admin: 02/17/18 09:37 Dose: 40 mg - Objective Vital Signs: Vital Signs Temperature 98.0 F 02/17/18 14:21 Pulse Rate 66 02/17/18 14:21 Respiratory Rate 18 02/17/18 14:21 Blood Pressure 100/55 02/17/18 14:21 O2 Sat by Pulse Oximetry (%) 98 02/16/18 21:00 Constitutional: Yes: No Distress, Calm Cardiovascular: Yes: Regular Rate and Rhythm Respiratory: Yes: Regular Gastrointestinal: Yes: Normal Bowel Sounds, Soft Genitourinary: Yes: WNL Integumentary: Yes: WNL Neurological: Yes: Alert, Oriented Labs: CBC, BMP 02/17/18 06:40 02/17/18 06:40 INR, PTT INR 1.05 (0.82-1.09) 02/16/18 10:50 CBC,CMP WBC 10.2 K/mm3 (4.0-10.0) H 02/17/18 06:40 RBC 4.64 M/mm3 (3.60-5.2) 02/17/18 06:40 Hgb 13.1 GM/dL (10.7-15.3) 02/17/18 06:40 Hct 39.0 % (32.4-45.2) 02/17/18 06:40 MCV 83.9 fl (80-96) 02/17/18 06:40 MCH 28.1 pg (25.7-33.7) 02/17/18 06:40 MCHC 33.5 g/dl (32.0-36.0) 02/17/18 06:40 RDW 14.2 % (11.6-15.6) 02/17/18 06:40 Plt Count 248 K/MM3 (134-434) 02/17/18 06:40 MPV 9.7 fl (7.5-11.1) 02/17/18 06:40 Absolute Neuts (auto) 8.2 # 02/17/18 06:40 Neutrophils % 80.4 % (42.8-82.8) D 02/17/18 06:40 Lymphocytes % 14.5 % (8-40) D 02/17/18 06:40 Monocytes % 4.9 % (3.8-10.2) 02/17/18 06:40 Eosinophils % 0.0 % (0-4.5) D 02/17/18 06:40 Basophils % 0.2 % (0-2.0) 02/17/18 06:40 Nucleated RBC % 0 % (0-0) 02/17/18 06:40 Sodium 141 mmol/L (136-145) 02/17/18 06:40 Potassium 4.1 mmol/L (3.5-5.1) 02/17/18 06:40 Chloride 107 mmol/L (98-107) 02/17/18 06:40 Carbon Dioxide 23 mmol/L (21-32) 02/17/18 06:40 Anion Gap 11 (8-16) 02/17/18 06:40 BUN 6 mg/dL (7-18) L 02/17/18 06:40 Creatinine 0.5 mg/dL (0.55-1.02) L 02/17/18 06:40 Creat Clearance w eGFR > 60 (>60) 02/17/18 06:40 Random Glucose 98 mg/dL (74-106) 02/17/18 06:40 Calcium 8.8 mg/dL (8.5-10.1) 02/17/18 06:40 Magnesium 2.1 mg/dL (1.8-2.4) 02/16/18 06:30 Total Bilirubin 1.3 mg/dL (0.2-1.0) H 02/17/18 06:40 Direct Bilirubin 0.6 mg/dL (0.0-0.2) H 02/17/18 06:40 AST 119 U/L (15-37) H 02/17/18 06:40 ALT 583 U/L (12-78) H 02/17/18 06:40 Alkaline Phosphatase 160 U/L (45-117) H D 02/17/18 06:40 Troponin I < 0.02 ng/ml (0.00-0.05) 02/15/18 20:19 C-Reactive Protein 0.6 MG/DL (0.00-0.3) H 02/17/18 06:40 Total Protein 6.6 g/dl (6.4-8.2) 02/17/18 06:40 Albumin 3.1 g/dl (3.4-5.0) L 02/17/18 06:40 Total Amylase 61 U/L (25-115) 02/17/18 06:40 Lipase 168 U/L (73-393) 02/17/18 06:40 - ....Imaging Ultrasound: Report Reviewed MRI: Report Reviewed Problem List - Problems (1) Cholecystitis Code(s): K81.9 - CHOLECYSTITIS, UNSPECIFIED (2) Elevated transaminase level Code(s): R74.0 - NONSPEC ELEV OF LEVELS OF TRANSAMNS & LACTIC ACID DEHYDRGNSE (3) Hyperbilirubinemia Code(s): E80.6 - OTHER DISORDERS OF BILIRUBIN METABOLISM (4) Obesity (BMI 30-39.9) Code(s): E66.9 - OBESITY, UNSPECIFIED Assessment/Plan 27 y.o. female with no significant PMH presented with RUQ pain x 2 days, noted to have elevated LFTs. Pain resolved. s/p ERCP without evidence of stone. +mild GB wall thickening with cholelithiasis Cholecystitis - LFTs trending down, Lipase normal, afebrile - for lap cholecystectomy today may d/c antibiotics after procedure and monitor
[2018-02-17] MEDS ORDERED: fentaNYL CITRATE 250 MCG/5 ML VIAL ONE (17:13)
[2018-02-17] MEDS ORDERED: MIDAZOLAM HCL 2 MG/2 ML SINGLE DOSE VIAL ONE (17:14)
[2018-02-17] MEDS ORDERED: ROCURONIUM BROMIDE 50 MG/5 ML VIAL ONE (17:14)
[2018-02-17] MEDS ORDERED: LIDOCAINE HCL/PF 2% SDV 5ML VIAL ONE (17:14)
[2018-02-17] MEDS ORDERED: PROPOFOL 20 ML ONE (17:14)
[2018-02-17] MEDS ORDERED: CEFOXITIN SODIUM 2 GM IVPB ONE (17:27)
[2018-02-17] MEDS ORDERED: cefOXitin SODIUM 1 GM VIAL (RESTRICTED TO ID) IVPB ONE (17:44)
[2018-02-17] MEDS ORDERED: BUPIVACAINE HCL/PF 0.5% (5MG/ML) 10 ML VIAL ONE (18:12)
[2018-02-17] MEDS ORDERED: DEXAMETHASONE SOD PHOSPHATE 4 MG/1 ML VIAL ONE (18:27)
[2018-02-17] MEDS ORDERED: ONDANSETRON 4 MG/2 ML VIAL ONE ×2 (18:27→18:38)
[2018-02-17] MEDS ORDERED: NEOSTIGMINE METHYLSULFATE 0.5 MG/ML - 10 ML MDV ONE (18:39)
[2018-02-17] MEDS ORDERED: BUPIVACAINE HCL/PF 0.5% (5MG/ML) 10 ML VIAL IJ ONE ×2 (18:41)
[2018-02-17] MEDS ORDERED: ONDANSETRON 4 MG/2 ML VIAL IVPUSH PRN (18:58)
[2018-02-17] MEDS ORDERED: MORPHINE SULFATE 2 MG/ML VIAL IVPUSH PRN (19:17)
[2018-02-18] MEDS ORDERED: DEXTROSE 5%-WATER - 50 ML IVPB ONE ×2 (00:24→09:59)
[2018-02-18] MEDS ORDERED: PIPERACILLIN/TAZOBACTAM 3.375 GM VIAL IVPB ONE ×2 (00:24→09:59)
[2018-02-18] MEDS: LACTATED RINGERS SOLUTION 1,000 ML IV SCH (02:00)
[2018-02-18] MEDS: PIPERACILLIN/TAZOB 3.375 GM 3.375 GM in DEXTROSE 5%-WATER - 50 ML IVPB SCH ×2 (02:20→10:34)
--- NOTE | 2018-02-18 08:48 | OP ---
DATE OF OPERATION: 02/17/2018 PREOPERATIVE DIAGNOSES: Choledocholithiasis, cholecystitis. POSTOPERATIVE DIAGNOSES: Choledocholithiasis, cholecystitis. PROCEDURE: Laparoscopic cholecystectomy. ATTENDING SURGEON: Mat Rodriguez MD ASSEMBLING MOTOR BUILDER: Bentley Rees MD ANESTHESIA: ANESTHESIA TYPE: General with local; local assisted with 0.5% Marcaine, a total of 20 mL in the skin at the port sites, AR block fashion. SPECIMEN: Gallbladder. ESTIMATED BLOOD LOSS: 20 mL. INTRAVENOUS FLUID REPLACED: 1000 mL of crystalloid. BRIEF FINDINGS: The patient had a distended gallbladder with some edema in the wall. INDICATIONS: The patient is a 27-year-old female presenting with upper abdominal pain after a meal high in fat. She had imaging and workup, including ERCP and sphincterotomy, the day preceding surgery that was consistent with choledocholithiasis. Some sludge and debris were retrieved. She was counseled regarding risks, benefits, and alternatives to laparoscopic cholecystectomy, possible open. She was given the opportunity to ask questions and had them answered to her satisfaction, at which point she signed the informed consent, which was placed on the chart. PROCEDURE: The patient was brought to the operating room and placed in the supine position on the operating table with the right arm tucked and the left arm extended at 90 degrees perpendicular to the body's midline axis. The patient had bilateral lower extremity SCDs placed to compression. The patient received intravenous antibiotics prior to the start of surgery. She was induced to general anesthesia, endotracheally intubated without incident. The anterior abdominal wall was prepped and draped into a standard surgical field. A formal timeout was completed, identifying the operative site and procedure. With all parties in agreement, we began first with an infraumbilical Edgard entry into the abdomen. It was scribed at the skin. An incision was made with the 15 blade scalpel, deepened and widened through subcutaneous fat to the midline rectus in the infraumbilical position. It was elevated with Shantel clamps, at which point blunt entry was made into the abdomen and a [id number] Vicryl was laid in for ablation of the port entry site. The 12-mm Edgard port was then installed into the abdomen and pneumoperitoneum was established to 15 mmHg, at which point we proceeded then with inspection of the gallbladder and liver. There appeared to be an atraumatic entry upon inspection of the entry site. The gallbladder itself was distended. The wall appeared somewhat edematous, was compressible, and could be grasped. Additional port sites were installed at the subxiphoid position as well as 2 in the right lateral abdomen under direct visualization. We began to grasp the gallbladder and retract it cranially towards the left shoulder. With this done, we could easily see the infundibulum of the gallbladder, which was also grasped, and planes were then developed anterior and posterior to the cystic structures. The cystic duct itself was transected after 5-mm clips were installed proximal and distal to the site and then divided under direct visualization after the critical view was identified, identifying the cystic artery. The 5-mm clips were also used to transect the cystic artery under direct visualization. This was completed and the gallbladder was then elevated from the hepatic plate using cautery. After completing the dissection of the gallbladder, it was retrieved from the umbilical port using an EndoCatch bag, 10-mm, after resetting the camera at the subxiphoid position. After completing this, hemostasis was obtained in the liver's bed using Bovie cautery inserted into punctate bleeding positions. The gallbladder fossa was irrigated and the irrigation was retrieved from the abdomen. The ports were then removed under direct visualization and the patient had the pneumoperitoneum relieved. The Edgard entry port was ablated using the [id number] which was laid in at the beginning of the case. It was tied and this ablated adequately. The skin was then cleaned and closed in standard fashion using a subcuticular closure at the 5-mm sites and a running subcuticular closure with 4-0 Vicryl at the infraumbilical position. The patient had skin cleaned; benzoin, Steri-Strips, gauze sponges, and Tegaderm were placed. She was awoken from general anesthesia, having tolerated the procedure well. She was given instructions to follow up in a period of 1 week. Counts were correct prior to closure. MD LUCI Morales/[id number]
[2018-02-18 09:55] VITALS: BP 130/66; PULSE 63; TEMP 98.4
[2018-02-18] MEDS ORDERED: PANTOPRAZOLE SODIUM 40 MG VIAL IVPUSH SCH (10:00)
[2018-02-18 10:22] LABS: BASO % 0.3 % (0-2.0); EOS % 0.1 % (0-4.5); HEMATOCRIT 38.1 % (32.4-45.2); HEMOGLOBIN 12.6 GM/dL (10.7-15.3); LYMPH % 27.1 % (8-40); MCH 28.2 pg (25.7-33.7); MCHC 33.1 g/dl (32.0-36.0); MEAN CELL VOLUME 85.1 fl (80-96); MEAN PLT VOLUME 9.7 fl (7.5-11.1); MONO % 5.6 % (3.8-10.2); NEUT % 66.9 % (42.8-82.8); PLATELET COUNT 242 K/MM3 (134-434); RBC 4.47 M/mm3 (3.60-5.2); RDW 14.2 % (11.6-15.6); WHITE BLOOD COUNT 9.1 K/mm3 (4.0-10.0)
[2018-02-18 10:57] LABS: CHLORIDE 103 mmol/L (98-107); SODIUM 139 mmol/L (136-145)
--- NOTE | 2018-02-18 11:04 | PN ---
Progress Note (short form) - Note Progress Note: Anesthesiology Post-op 27 y.o. woman POD#1 s/p Laparoscopic Cholecystectomy under [place]. Pt. is resting comfortably in bed. She does have some abdominal discomfort but she states that it is manageable and that she isn't concerned about it. Denies n /v. She has no complaints and is anxious to be discharged so that she may see her infant who is in another hospital. VSS. 27 y.o. woman with stable post-operative course s/p lap cholecystectomy. Continue post-operative management as per primary team.
[2018-02-18 11:08] LABS: ALBUMIN 3.2 g/dl (3.4-5.0); ALK PHOS 130 U/L (45-117); ANION GAP 10 (8-16); BILIRUBIN,TOTAL 1.1 mg/dL (0.2-1.0); BLOOD UREA NITROGEN 8 mg/dL (7-18); CALCIUM 8.7 mg/dL (8.5-10.1); CO2 26 mmol/L (21-32); CREATININE 0.6 mg/dL (0.55-1.02); GLUCOSE,RANDOM 81 mg/dL (74-106); MAGNESIUM 1.9 mg/dL (1.8-2.4); SGOT/AST 188 U/L (15-37); TOT PROT 6.7 g/dl (6.4-8.2)
[2018-02-18 11:14] LABS: SGPT/ALT 576 U/L (12-78)
--- NOTE | 2018-02-18 11:20 | PN ---
Progress Note, Physician History of Present Illness: doing well no complaints except post op pain - Current Medication List Current Medications: Active Medications Lactated Ringer's (Lactated Ringers Solution) 1,000 mls @ 125 mls/hr IV ASDIR [facility] Last Admin: 02/18/18 02:00 Dose: 125 mls/hr Piperacillin Sod/Tazobactam (Sod 3.375 gm/ Dextrose) 50 mls @ 100 mls/hr IVPB Q8H-IV [facility] Last Admin: 02/18/18 10:34 Dose: 100 mls/hr Morphine Sulfate (Morphine Sulfate) 2 mg IVPUSH Q4H PRN PRN Reason: PAIN 4-6 Last Admin: 02/17/18 20:17 Dose: 2 mg Ondansetron HCl (Zofran Injection) 4 mg IVPUSH Q6H PRN PRN Reason: NAUSEA AND/OR VOMITING Pantoprazole Sodium (Protonix Iv) 40 mg IVPUSH DAILY [facility] Last Admin: 02/18/18 10:34 Dose: 40 mg - Objective Vital Signs: Vital Signs Temperature 98.4 F 02/18/18 09:00 Pulse Rate 63 02/18/18 09:00 Respiratory Rate 18 02/18/18 09:00 Blood Pressure 130/66 02/18/18 09:00 O2 Sat by Pulse Oximetry (%) 100 02/17/18 21:00 Constitutional: Yes: No Distress, Calm HENT: Yes: Atraumatic, Normocephalic Cardiovascular: Yes: Regular Rate and Rhythm Respiratory: Yes: Regular, CTA Bilaterally Gastrointestinal: Yes: Normal Bowel Sounds, Soft Musculoskeletal: Yes: WNL Extremities: Yes: WNL Integumentary: Yes: WNL Wound/Incision: Yes: Clean/Dry Neurological: Yes: Alert, Oriented Psychiatric: Yes: Alert, Oriented Labs: CBC, BMP 02/18/18 08:34 02/18/18 08:34 INR, PTT INR 1.05 (0.82-1.09) 02/16/18 10:50 Assessment/Plan Problem List - Problems (1) Cholecystitis Code(s): K81.9 - CHOLECYSTITIS, UNSPECIFIED (2) Choledocholithiasis Code(s): K80.50 - CALCULUS OF BILE DUCT W/O CHOLANGITIS OR CHOLECYST W/O OBST (3) Obesity (BMI 30-39.9) Code(s): E66.9 - OBESITY, UNSPECIFIED (4) Elevated transaminase level Code(s): R74.0 - NONSPEC ELEV OF LEVELS OF TRANSAMNS & LACTIC ACID DEHYDRGNSE (5) Hyperbilirubinemia Code(s): E80.6 - OTHER DISORDERS OF BILIRUBIN ME plan can stop abx diet as tolerated rest as per surgery stable
--- NOTE | 2018-02-18 12:43 | DS ---
Physical Exam: SUBJECTIVE: Patient seen and examined OBJECTIVE: Vital Signs Period Temp Pulse Resp BP Sys/Leach Pulse Ox Last 24 Hr 98.0 F-98.6 F 54-73 16-18 100-130/55-71 98-100 PHYSICAL EXAM GENERAL: The patient is awake, alert, and fully oriented, in no acute distress. HEAD: Normal with no signs of trauma. EYES: PERRL, extraocular movements intact, sclera anicteric, conjunctiva clear. ENT: Ears normal, nares patent, oropharynx clear without exudates, moist mucous membranes. NECK: Trachea midline, full range of motion, supple. LUNGS: Breath sounds equal, clear to auscultation bilaterally, no wheezes, no crackles, no accessory muscle use. HEART: Regular rate and rhythm, S1, S2 without murmur, rub or gallop. ABDOMEN: Soft, nontender, nondistended, normoactive bowel sounds, no guarding, no rebound, no hepatosplenomegaly, no masses. EXTREMITIES: 2+ pulses, warm, well-perfused, no edema. NEUROLOGICAL: Cranial nerves II through XII grossly intact. Normal speech, gait not observed. PSYCH: Normal mood, normal affect. SKIN: Warm, dry, normal turgor, no rashes or lesions noted. LABS Laboratory Results - last 24 hr 02/18/18 02/18/18 08:34 08:34 WBC 9.1 RBC 4.47 Hgb 12.6 Hct 38.1 MCV 85.1 MCH 28.2 MCHC 33.1 RDW 14.2 Plt Count 242 MPV 9.7 Absolute Neuts (auto) 6.1 Neutrophils % 66.9 Lymphocytes % 27.1 D Monocytes % 5.6 Eosinophils % 0.1 D Basophils % 0.3 Nucleated RBC % 0 Sodium 139 Potassium 4.0 Chloride 103 Carbon Dioxide 26 Anion Gap 10 BUN 8 Creatinine 0.6 Creat Clearance w eGFR > 60 Random Glucose 81 Calcium 8.7 Magnesium 1.9 Total Bilirubin 1.1 H AST 188 H ALT 576 H Alkaline Phosphatase 130 H D Total Protein 6.7 Albumin 3.2 L HOSPITAL COURSE: Date of Admission:02/15/18 Date of Discharge: 02/18/18 Discharge Summary Reason For Visit: BACK PAIN/ABDOMINAL PAIN Current Active Problems Biliary obstruction (Acute) Cholecystitis (Acute) Cholecystitis (Acute) Choledocholithiasis (Acute) Cholelithiasis (Acute) Elevated transaminase level (Acute) Hyperbilirubinemia (Acute) Obesity (BMI 30-39.9) (Acute) Condition: Improved - Instructions Diet, Activity, Other Instructions: Postoperative instructions: You had a laparoscopic cholecystectomy on 02/17/[address] Mat Rodriguez of [facility]. Activity: Resume your usual activities gradually, but no heavy exertion or lifting more than 10-15 pounds for 1 month. Remove dressings 48 hours after surgery; sticky tapes underneath will fall off by themselves. You may shower daily starting then, just pat the incision areas dry. Eat lightly at first, but advance to your usual diet as tolerated. Pain: For pain, you may use and alternate Tylenol (acetaminophen) and/or ibuprofen every 6 hours each as needed; this means that you can take one OR the other at 3-hour intervals. If you are prescribed a Tylenol/narcotic combination for severe pain, use it instead of plain Tylenol as needed and switch back when your pain starts decreasing. Do not take more than 4000mg of acetaminophen in a day. Take medications as prescribed or indicated on the labeling. Follow-up: Call Dr. Rodriguez' office at [phone] to make your postop appointment (Monday ~2 weeks after surgery). Clinic is held in the [facility] on the first floor of [facility]. Call the office if you have: * increasing pain not responsive to pain medication * fever of 101F or higher * vomiting * unusual or increasing bleeding or drainage from wounds * increasing redness or swelling at wound sites * inability to urinate Also, see your primary medical doctor within 1-2 weeks. Referrals: Dominique Arceo [Primary Care Provider] - Mat Rodriguez MD [Staff Physician] - 2 Weeks Disposition: HOME - Home Medications Comprehensive Discharge Medication List: Ambulatory Orders NK [No Known Home Medication] 02/15/18 - Discharge Referral Referred to [facility] No
[2018-02-18] MEDS ORDERED: ACETAMINOPHEN 325 MG TABLET (FP) PO PRN (14:27)
--- NOTE | 2018-02-18 14:35 | PN ---
Progress Note, Physician History of Present Illness: Covering for Dr. Rodriguez: s/p ERCP and sphincterotomy with some sludge retrieved, lap leighton for choledocholithiasis and chronic cholecystitis feeling well ambulating in fuller tolerating diet pain minimal, no meds yet today voiding and using IS - Current Medication List Current Medications: Active Medications Acetaminophen (Tylenol -) 650 mg PO Q6H PRN PRN Reason: PAIN LEVEL 4 - 6 Ondansetron HCl (Zofran Injection) 4 mg IVPUSH Q6H PRN PRN Reason: NAUSEA AND/OR VOMITING Pantoprazole Sodium (Protonix Iv) 40 mg IVPUSH DAILY [facility] Last Admin: 02/18/18 10:34 Dose: 40 mg - Objective Vital Signs: Vital Signs Temperature 98.4 F 02/18/18 09:00 Pulse Rate 63 02/18/18 09:00 Respiratory Rate 18 02/18/18 09:00 Blood Pressure 130/66 02/18/18 09:00 O2 Sat by Pulse Oximetry (%) 100 02/17/18 21:00 Constitutional: Yes: No Distress, Calm, Obese Eyes: Yes: Conjunctiva Clear, EOM Intact. No: Sclera Icterus HENT: Yes: Atraumatic, Normocephalic Gastrointestinal: Yes: Soft, Abdomen, Obese, Tenderness (mild RUQ, mostly incisional, appropriate, no R/G) Genitourinary: Yes: Menses Present Extremities: No: Cool, Cyanosis Integumentary: Yes: Incision (x4 with steri's), Tattoos. No: Jaundice, Rash Wound/Incision: Yes: Clean/Dry, Steri Strips (with small areas of dried blood on some), Open to air (dressings removed by primary team), Other (tiny tape blister at RUQ site; all dressings replaced with gauze and tegaderm). No: Draining, Reddened Neurological: Yes: Alert, Oriented Labs: CBC, BMP 02/18/18 08:34 02/18/18 08:34 CMP Sodium 139 mmol/L (136-145) 02/18/18 08:34 Potassium 4.0 mmol/L (3.5-5.1) 02/18/18 08:34 Chloride 103 mmol/L (98-107) 02/18/18 08:34 Carbon Dioxide 26 mmol/L (21-32) 02/18/18 08:34 Anion Gap 10 (8-16) 02/18/18 08:34 BUN 8 mg/dL (7-18) 02/18/18 08:34 Creatinine 0.6 mg/dL (0.55-1.02) 02/18/18 08:34 Creat Clearance w eGFR > 60 (>60) 02/18/18 08:34 Random Glucose 81 mg/dL (74-106) 02/18/18 08:34 Calcium 8.7 mg/dL (8.5-10.1) 02/18/18 08:34 Magnesium 1.9 mg/dL (1.8-2.4) 02/18/18 08:34 Total Bilirubin 1.1 mg/dL (0.2-1.0) H 02/18/18 08:34 Direct Bilirubin 0.6 mg/dL (0.0-0.2) H 02/17/18 06:40 AST 188 U/L (15-37) H 02/18/18 08:34 ALT 576 U/L (12-78) H 02/18/18 08:34 Alkaline Phosphatase 130 U/L (45-117) H D 02/18/18 08:34 Troponin I < 0.02 ng/ml (0.00-0.05) 02/15/18 20:19 C-Reactive Protein 0.6 MG/DL (0.00-0.3) H 02/17/18 06:40 Total Protein 6.7 g/dl (6.4-8.2) 02/18/18 08:34 Albumin 3.2 g/dl (3.4-5.0) L 02/18/18 08:34 Total Amylase 61 U/L (25-115) 02/17/18 06:40 Lipase 168 U/L (73-393) 02/17/18 06:40 LFTs decreasing, wbc 9 Problem List - Problems (1) Calculus of gallbladder and bile duct with chronic cholecystitis with obstruction Assessment/Plan: POD1 s/p laparoscopic cholecystectomy, POD2 s/p ERCP with sphincterotomy and sludge extraction doing well incisions clean, no s/s infection dressings replaced ambulating, tolerating diet and pain controlled tylenol ok prior to discharge home instructions in d/c plan Code(s): K80.65 - CALCULUS OF GB AND BILE DUCT W CHRONIC CHOLECYST W OBST (2) Elevated transaminase level Assessment/Plan: decreasing slowly Code(s): R74.0 - NONSPEC ELEV OF LEVELS OF TRANSAMNS & LACTIC ACID DEHYDRGNSE (3) Hyperbilirubinemia Assessment/Plan: decreasing steadily Code(s): E80.6 - OTHER DISORDERS OF BILIRUBIN METABOLISM (4) Obesity (BMI 30-39.9) Code(s): E66.9 - OBESITY, UNSPECIFIED
--- NOTE | 2018-02-20 17:15 | PATH ---
Surgical Pathology Report Patient Name: JOHN BUSTILLO Med. Rec. #: [id number] /Age/Gender: 1990 (Age: 27) / F Account: [id number] Location: [facility] MED/SURG Taken: 02/17/2018 Received: 02/19/2018 Reported: 02/20/2018 Physicians: Matt Morales F.N.P. Specimen(s) Received GALLBLADDER Clinical History Acute cholecystitis/choledocholithiasis Final Diagnosis GALLBLADDER, LAPAROSCOPIC CHOLECYSTECTOMY: CHRONIC CHOLECYSTITIS, CHOLESTEROLOSIS, AND CHOLELITHIASIS. Electronically Signed Whit Benitez M.D. Gross Description Received in formalin, labeled "gallbladder," is a 8 x 2 x 1.5 cm. gallbladder with a 0.1 cm. in length portion of cystic duct attached. The outer surface bauer-red and varies from smooth to shaggy. The lumen contains multiple irregular yellow stones ranging in size from 0.3-0.5 cm, and measuring in aggregate 2 x 1 x 0.3. The mucosa is green bauer and velvety with focal yellow stippling. The wall of the gallbladder measures 0.2 cm. in thickness. Chocolate Finisher Operator sections are submitted in one cassette. JENNIE/02/19/2018 shyla/02/19/2018
== END 2018-02-18 15:00 | disposition home or self-care (01) | DRG 263 ==
LOC: JER 01:15 → JERBED 12:03 → J8W 16:23
PROVIDERS: ADMIT Hospitalist; ATTEND Nurse Practitioner Acute Care
PROC: 0FT44ZZ Resection of Gallbladder, Percutaneous Endoscopic Approach (ICD-10-PCS; principal; 2018-02-17 17:45)
DX: K80.00 Calculus of gallbladder with acute cholecystitis without obstruction (principal); K80.65 Calculus of gallbladder and bile duct with chronic cholecystitis with obstruction; R74.0 Nonspecific elevation of levels of transaminase and lactic acid dehydrogenase [LDH]; E66.9 Obesity, unspecified; Z68.37 Body mass index [BMI] 37.0-37.9, adult; E80.6 Other disorders of bilirubin metabolism; K83.1 Obstruction of bile duct
CPT/HCPCS: 36415; 71046-TC-FY; 74181-TC; 76000-TC-FY; 76705-TC; 80048; 80053; 80076; 81003; 81015; 82150; 82248; 83690; 83735; 84484; 84703; 85025; 85027; 85610; 85730; 86140; 86850; 86900; 86901; 88304-TC; 94010; 94760; 99285-25; J1100; J7030

== ENCOUNTER 2020-10-30 21:41 | Emergency (ER) | payer OTHER ==
[2020-10-30 21:49] VITALS: BMI 40.2
[2020-10-30] MEDS ORDERED: IBUPROFEN 600 MG TABLET (FP) PO ONE ×2 (21:56→22:19)
[2020-10-30] MEDS ORDERED: ACETAMINOPHEN 500 MG TABLET (FP) PO ONE (21:56)
[2020-10-30] MEDS ORDERED: ACETAMINOPHEN 500 MG TABLET (FP) ONE (22:19)
[2020-10-30] MEDS ORDERED: ONDANSETRON *ODT* 4 MG TABLET ONE (22:36)
[2020-10-30] MEDS ORDERED: ONDANSETRON *ODT* 4 MG TABLET SL ONE (22:37)
[2020-10-30 23:42] VITALS: BP 142/91; PULSE 100; TEMP 98.3
== END 2020-10-31 08:02 | disposition home or self-care (01) ==
LOC: JER 21:41
DX: U07.1 COVID-19 (principal)
CPT/HCPCS: 71046-TC-FY; 99283-25; Q0162

== ENCOUNTER 2021-08-10 22:45 | Emergency (ER) | payer OTHER ==
[2021-08-10 23:18] VITALS: BP 121/84; PULSE 88; TEMP 97.8; BMI 40.0
[2021-08-11 03:05] LABS: INR 0.93 (0.83-1.09); PROTHROMBIN TIME (PATIENT) 10.9 SEC (9.7-13.0)
[2021-08-11 03:06] LABS: HEMATOCRIT 40.6 % (32.4-45.2); HEMOGLOBIN 13.8 GM/dL (10.7-15.3); MCH 28.6 pg (25.7-33.7); MCHC 33.9 g/dl (32.0-36.0); MEAN CELL VOLUME 84.5 fl (80-96); MEAN PLT VOLUME 9.2 fl (7.5-11.1); PLATELET COUNT 295 10^3/uL (134-434); RBC 4.81 M/mm3 (3.60-5.2); RDW 13.4 % (11.6-15.6); WHITE BLOOD COUNT 10.5 K/mm3 (4.0-10.0)
[2021-08-11 03:08] LABS: ACTIVATED PTT 32.2 SECONDS (25.2-36.5)
[2021-08-11 03:19] LABS: ALBUMIN 3.3 g/dl (3.4-5.0)
[2021-08-11 03:20] LABS: BLOOD UREA NITROGEN 13.6 mg/dL (7-18)
[2021-08-11 03:22] LABS: CREATININE 0.8 mg/dL (0.55-1.3)
[2021-08-11 03:24] LABS: BILIRUBIN,TOTAL 0.3 mg/dL (0.2-1); TOT PROT 7.5 g/dl (6.4-8.2)
[2021-08-11 03:52] LABS: ANISOCYTOSIS 2+; MACROCYTOSIS 0; PLATELET ESTIMATE NORMAL
[2021-08-11 05:33] LABS: EPI CELLS 5 /uL (0-25.1); HYALINE CASTS 1 /uL (0-3.1); PH,URINE 5.5 (5.0-8.0); URINE APPEARANCE CLEAR; URINE BACTERIA 5 /uL (0-1359); URINE BILIRUBIN NEGATIVE (NEGATIVE); URINE COLOR YELLOW; URINE GLUCOSE (UA) NEGATIVE (NEGATIVE); URINE KETONE NEGATIVE (NEGATIVE); URINE LEUK ESTERASE NEGATIVE (NEGATIVE); URINE NITRITE NEGATIVE (NEGATIVE); URINE PROTEIN NEGATIVE (NEGATIVE); URINE RBC 800 /uL (0-23.9); URINE UROBILINOGEN 0.2 mg/dL (0.2-1.0); URINE WBC 14 /uL (0-25.8)
[2021-08-11] MEDS ORDERED: SODIUM CHLORIDE 0.9% 500 ML INFUS.BAG IV ONE (06:30)
== END 2021-08-11 07:18 | disposition home or self-care (01) ==
LOC: JER 22:45
DX: K42.9 Umbilical hernia without obstruction or gangrene (principal)
CPT/HCPCS: 36415; 74177-TC; 76705-TC; 80053; 81003; 83690; 84703; 85025; 85610; 85730; 87086; 99285-25; C9803; Q9967; U0003; U0005

== ENCOUNTER 2022-01-11 09:44 | Emergency (ER) | payer OTHER ==
[2022-01-11 10:00] VITALS: BP 138/78; PULSE 78; TEMP 98.2; BMI 40.2
[2022-01-11] MEDS ORDERED: KETOROLAC TROMETHAMINE 30 MG/1 ML VIAL IM ONE (11:16)
[2022-01-11] MEDS ORDERED: KETOROLAC TROMETHAMINE 30 MG/1 ML VIAL ONE (11:19)
== END 2022-01-11 12:07 | disposition home or self-care (01) ==
LOC: JERFT 09:44
PROC: 3E0233Z Introduction of Anti-inflammatory into Muscle, Percutaneous Approach (ICD-10-PCS; principal; 2022-01-11)
DX: M54.50 Low back pain, unspecified (principal); V43.52XA Car driver injured in collision with other type car in traffic accident, initial encounter
CPT/HCPCS: 99284-25

== ENCOUNTER 2023-01-23 15:47 | Emergency (ER) | payer OTHER ==
[2023-01-23 15:55] VITALS: BP 116/86; PULSE 107; RESP 19; TEMP 98.8; BMI 40.2
[2023-01-23] MEDS ORDERED: ALBUTEROL SO4 2.5/IPRATROPIUM 0.5 INH SOL 3 ML VIAL.NEB. NEB ONE (16:27)
[2023-01-23 18:16] LABS: EPI CELLS 14 /uL (0-25.1); HYALINE CASTS 0 /uL (0-3.1); URINE APPEARANCE CLEAR; URINE BACTERIA 88 /uL (0-1359); URINE BILIRUBIN NEGATIVE (NEGATIVE); URINE COLOR YELLOW; URINE GLUCOSE (UA) NEGATIVE (NEGATIVE); URINE KETONE NEGATIVE (NEGATIVE); URINE LEUK ESTERASE NEGATIVE (NEGATIVE); URINE NITRITE NEGATIVE (NEGATIVE); URINE PROTEIN NEGATIVE (NEGATIVE); URINE RBC 75 /uL (0-23.9); URINE UROBILINOGEN 0.2 mg/dL (0.2-1.0); URINE WBC 8 /uL (0-25.8)
== END 2023-01-23 18:58 | disposition home or self-care (01) ==
LOC: JERFT 15:47
PROC: 3E0F7GC Introduction of Other Therapeutic Substance into Respiratory Tract, Via Natural or Artificial Opening (ICD-10-PCS; principal; 2023-01-23)
DX: R09.81 Nasal congestion (principal); R05.9 Cough, unspecified; J10.1 Influenza due to other identified influenza virus with other respiratory manifestations; J20.8 Acute bronchitis due to other specified organisms; Z20.822 Contact with and (suspected) exposure to COVID-19
CPT/HCPCS: 0241U-QW; 71046-TC-FY; 81003; 84703; 87070; 87086; 87651; 99284-25

== ENCOUNTER 2023-07-29 16:23 | Emergency (ER) | payer OTHER ==
[2023-07-29 16:34] VITALS: BP 103/64; PULSE 83; RESP 20; TEMP 98; BMI 39.3
[2023-07-29] MEDS ORDERED: KETOROLAC TROMETHAMINE 30 MG/1 ML VIAL IM ONE (17:00)
[2023-07-29] MEDS ORDERED: KETOROLAC TROMETHAMINE 60 MG/2 ML VIAL ONE (17:06)
== END 2023-07-29 18:38 | disposition home or self-care (01) ==
LOC: JERFT 16:23
PROC: 3E0233Z Introduction of Anti-inflammatory into Muscle, Percutaneous Approach (ICD-10-PCS; principal; 2023-07-29)
DX: S67.195A Crushing injury of left ring finger, initial encounter (principal); X58.XXXA Exposure to other specified factors, initial encounter; Y99.0 Civilian activity done for income or pay
CPT/HCPCS: 73140-TC-LT-FY; 99284-25

== ENCOUNTER 2023-09-18 12:05 | Emergency (ER) | payer OTHER ==
[2023-09-18 12:40] VITALS: BP 124/73; PULSE 93; RESP 19; TEMP 98.3; BMI 37.2
== END 2023-09-18 16:30 | disposition home or self-care (01) ==
LOC: JER 12:05 → JERFT 12:05
DX: R50.9 Fever, unspecified (principal); R05.9 Cough, unspecified; R51.9 Headache, unspecified; M79.10 Myalgia, unspecified site; R11.0 Nausea; J10.1 Influenza due to other identified influenza virus with other respiratory manifestations; B34.9 Viral infection, unspecified; Z20.822 Contact with and (suspected) exposure to COVID-19
CPT/HCPCS: 0241U-QW; 99283-25

== ENCOUNTER 2023-10-23 20:33 | Emergency (ER) | payer OTHER ==
[2023-10-23 20:45] VITALS: TEMP 97.7; BMI 38.0
[2023-10-23 22:19] LABS: BASO % 0.2 % (0-2.0); EOS % 0.8 % (0-4.5); HEMATOCRIT 37.3 % (32.4-45.2); HEMOGLOBIN 12.5 GM/dL (10.7-15.3); LYMPH % 31.5 % (8-40); MCH 28.4 pg (25.7-33.7); MCHC 33.5 g/dl (32.0-36.0); MEAN CELL VOLUME 84.9 fl (80-96); MEAN PLT VOLUME 8.6 fl (7.5-11.1); MONO % 7.5 % (3.8-10.2); PLATELET COUNT 282 10^3/uL (134-434); RDW 13.8 % (11.6-15.6); WHITE BLOOD COUNT 10.3 K/mm3 (4.0-10.0)
[2023-10-23] MEDS ORDERED: ACETAMINOPHEN INJECTION 100 ML IVPB ONE (22:43)
[2023-10-23] MEDS: SODIUM CHLORIDE 0.9% 500 ML INFUS.BAG IV ONE (22:48)
[2023-10-23] MEDS: ACETAMINOPHEN 1000 MG/100 ML BAG IVPB ONE (22:48)
[2023-10-23 22:51] LABS: ALBUMIN 3.3 g/dl (3.4-5.0); BLOOD UREA NITROGEN 13.6 mg/dL (7-18)
[2023-10-23 22:54] LABS: CREATININE 1.2 mg/dL (0.55-1.3)
[2023-10-23 22:56] LABS: BILIRUBIN,TOTAL 0.5 mg/dL (0.2-1); TOT PROT 7.1 g/dl (6.4-8.2)
[2023-10-24 01:10] VITALS: BP 108/68; PULSE 65; RESP 16
== END 2023-10-24 01:23 | disposition home or self-care (01) ==
LOC: JER 20:33
PROC: 3E033NZ Introduction of Analgesics, Hypnotics, Sedatives into Peripheral Vein, Percutaneous Approach (ICD-10-PCS; principal; 2023-10-23)
DX: R10.33 Periumbilical pain (principal); K42.9 Umbilical hernia without obstruction or gangrene
CPT/HCPCS: 36415; 74177-TC; 80053; 84703; 85025; 99285-25; J0131; Q9967